=== PATIENT | female | born 1985 | race Caucasian/White ===

== ENCOUNTER 2017-01-21 11:54 | Emergency (ER) | payer MEDICARE, MEDICAID ==
[~2017-01-21] VITALS: Ht 162.6 cm; Wt 92.1 kg
[~2017-01-21 11:54] MED LIST: 8 HO650T PO; CIPR500T89 PO; FLAG500T PO; LORT5TAB PO; NUVAMIS2 VA; OMEP20CA3 PO
[2017-01-21] MEDS ORDERED: ZYPR10TA PO (12:04)
[2017-01-21] MEDS ORDERED: TRAZ150T14 PO (12:04)
[2017-01-21] MEDS ORDERED: ALBUTEROL SULFATE 2.5 MG/0.5 ML INH NEB SOLN NEB ONE (12:45)
[2017-01-21] MEDS ORDERED: ALBU17IN2 INH (13:15)
[2017-01-21] MEDS ORDERED: DOXY-278 PO (13:15)
[2017-01-21] MEDS ORDERED: MUCI600T34 PO (13:15)
[2017-01-21 13:31] VITALS: BP 136/84
--- NOTE | 2017-01-21 13:36 | REP ---
CHEST, TWO VIEWS: COMPARISON: 02/21/2014 There is no evidence of acute infiltrate. No pleural effusion is seen. The heart is normal in size. The mediastinal silhouette is unremarkable. The visualized osseous structures are intact. IMPRESSION: No acute pulmonary disease. Signed by Homeor Alcaraz MD 01/22/2017 01:17 P
== END 2017-01-21 13:33 | disposition home or self-care (01) ==
LOC: M ED 12:33
DX: J20.9 Acute bronchitis, unspecified (principal); F17.210 Nicotine dependence, cigarettes, uncomplicated; J45.909 Unspecified asthma, uncomplicated; Z88.0 Allergy status to penicillin; Z88.8 Allergy status to other drugs, medicaments and biological substances; Z79.899 Other long term (current) drug therapy; Z85.41 Personal history of malignant neoplasm of cervix uteri; F31.9 Bipolar disorder, unspecified; F43.10 Post-traumatic stress disorder, unspecified

== ENCOUNTER → 2017-02-08 | Outpatient (CLI) | payer MEDICAID, MEDICARE, OTHER ==
[~2017-02-08] MED LIST changes: +ALBU17IN2 INH; +CITRSOL8 PO; +COLA100C3 PO; +DOXY-278 PO; +METH10CO PO; +MUCI600T34 PO; +TRAZ150T14 PO; +ZYPR10TA PO
[2017-02-08 14:53] LABS: CONTROL LINE UCG INT CTR LINE PRESENT
[2017-02-08 14:54] LABS: BASO # 0.1 K/mm3 (0.0-0.2); BASO % 0.8 % (0.0-1.0); EOS # 0.2 K/mm3 (0.0-0.50); EOS % 2.1 % (0.0-3.0); LARGE UNSTAINED CELL # 0.1 K/mm3 (0.0-0.4); LARGE UNSTAINED CELL % 1.5 % (0.0-4.0); LYMPH # 2.8 K/mm3 (1.5-6.5); LYMPH % 29.9 % (24.0-44.0); MEAN CORPUSCULAR HEMOGLOBIN 31.8 pg (27.0-33.0); MEAN CORPUSCULAR HGB CONC 33.4 g/dl (32.0-36.5); MEAN CORPUSCULAR VOLUME 95.1 fl (80.0-96.0); MONO # 0.4 K/mm3 (0.0-0.8); MONO % 4.5 % (0.0-5.0); NEUTROPHILS # 5.4 K/mm3 (1.8-7.7); NEUTROPHILS % 61.2 % (36.0-66.0); PLATELET COUNT, AUTOMATED 332 k/mm3 (150-450); RED CELL DISTRIBUTION WIDTH 12.6 % (11.5-14.5); WHITE BLOOD COUNT 8.8 K/mm3 (4.0-10.0)
[2017-02-08 15:21] LABS: ALBUMIN 3.9 GM/DL (3.2-5.2); ALBUMIN/GLOBULIN RATIO 1.15 (1.00-1.93); ALKALINE PHOSPHATASE 75 U/L (45-117); ALT/SGPT 94 U/L (12-78); ANION GAP 10 MEQ/L (8-16); AST/SGOT 37 U/L (15-37); BILIRUBIN,TOTAL 0.4 MG/DL (0.2-1.0); BLOOD UREA NITROGEN 20 MG/DL (7-18); CALCIUM LEVEL 9.1 MG/DL (8.5-10.1); CARBON DIOXIDE LEVEL 23 MEQ/L (21-32); CHLORIDE LEVEL 105 MEQ/L (98-107); CREATININE FOR GFR 0.74 MG/DL (0.55-1.02); GLOMERULAR FILTRATION RATE > 60.0 (>60); GLUCOSE, FASTING 155 MG/DL (70-105); POTASSIUM SERUM 4.4 MEQ/L (3.5-5.1); SODIUM LEVEL 138 MEQ/L (136-145); TOTAL PROTEIN 7.3 GM/DL (6.4-8.2)
--- NOTE | 2017-02-08 17:59 | ECGEPIP ---
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
== END ==
LOC: M LAB 13:45
PROVIDERS: ATTEND Family Medicine
DX: F11.20 Opioid dependence, uncomplicated (principal)

== ENCOUNTER 2017-02-22 15:35 | Emergency (ER) | payer MEDICARE, MEDICAID ==
[~2017-02-22] VITALS: Ht 162.6 cm; Wt 97.5 kg
[~2017-02-22 15:35] MED LIST changes: -CITRSOL8 PO; -COLA100C3 PO; -METH10CO PO
[2017-02-22] MEDS ORDERED: METH10CO PO (15:49)
[2017-02-22 16:57] VITALS: BP 134/70
[2017-02-22] MEDS ORDERED: COLA100C3 PO (17:06)
[2017-02-22] MEDS ORDERED: CITRSOL8 PO (17:06)
--- NOTE | 2017-02-22 17:40 | REP ---
ABDOMEN FLAT UPRIGHT PA CHEST, FOUR VIEWS: HISTORY: Constipation. Air is present in the small and large intestine. There are no air fluid levels with dilated loops of intestine. There is no pneumoperitoneum. A mild amount of stool is present in the colon. The lungs are clear. IMPRESSION: 1. Nonspecific bowel gas pattern. 2. There is a mild amount of stool in the colon. Signed by Bhavik Ledesma MD 02/23/2017 09:06 A
== END 2017-02-22 17:25 | disposition home or self-care (01) ==
LOC: M ED 16:17
DX: K59.00 Constipation, unspecified (principal); J34.89 Other specified disorders of nose and nasal sinuses; Z86.19 Personal history of other infectious and parasitic diseases; F17.200 Nicotine dependence, unspecified, uncomplicated; J45.909 Unspecified asthma, uncomplicated; F41.9 Anxiety disorder, unspecified; F32.9 Major depressive disorder, single episode, unspecified; F43.10 Post-traumatic stress disorder, unspecified; Z87.09 Personal history of other diseases of the respiratory system; Z79.899 Other long term (current) drug therapy; Z88.0 Allergy status to penicillin; Z88.5 Allergy status to narcotic agent; Z88.1 Allergy status to other antibiotic agents

== ENCOUNTER → 2017-06-22 | Outpatient (CLI) | payer MEDICARE, MEDICAID ==
[~2017-06-22] MED LIST changes: -8 HO650T PO; +8 HO650T2 PO; +CIPR-249 PO; -CIPR500T89 PO; +CITRSOL8 PO; +COLA100C5 PO; +METH10CO PO; -MUCI600T34 PO; +MUCI600T37 PO; -TRAZ150T14 PO; +TRAZ1TAB14 PO
[2017-06-22 18:55] LABS: PROGESTERONE 0.8 NG/ML
[2017-06-22 18:56] LABS: ESTRADIOL 60.1 PG/ML
[2017-06-22 19:03] LABS: FREE T4 1.35 NG/DL (0.76-1.46)
[2017-06-27 14:08] LABS: 17 HYDROXY PROGESTERONE 39 ng/dL (.)
== END ==
LOC: M SMT 14:40
PROVIDERS: ATTEND Obstetrics & Gynecology
DX: N97.9 Female infertility, unspecified (principal)
CPT/HCPCS: 36415; 82627; 82670; 83498; 84144; 84146; 84402; 84403; 84439; 84443; G0123

== ENCOUNTER → 2017-07-20 | Outpatient (CLI) | payer MEDICAID ==
[2017-07-20 13:25] LABS: BASO # 0.1 K/mm3 (0.0-0.2); BASO % 0.8 % (0.0-1.0); EOS # 0.3 K/mm3 (0.0-0.50); EOS % 2.8 % (0.0-3.0); LARGE UNSTAINED CELL # 0.2 K/mm3 (0.0-0.4); LARGE UNSTAINED CELL % 2.1 % (0.0-4.0); LYMPH # 2.9 K/mm3 (1.5-4.5); LYMPH % 30.8 % (24.0-44.0); MEAN CORPUSCULAR HEMOGLOBIN 31.8 pg (27.0-33.0); MEAN CORPUSCULAR HGB CONC 34.3 g/dl (32.0-36.5); MEAN CORPUSCULAR VOLUME 92.7 fl (80.0-96.0); MONO # 0.6 K/mm3 (0.0-0.8); MONO % 6.5 % (0.0-5.0); NEUTROPHILS # 5.4 K/mm3 (1.8-7.7); NEUTROPHILS % 56.9 % (36.0-66.0); PLATELET COUNT, AUTOMATED 302 k/mm3 (150-450); RED CELL DISTRIBUTION WIDTH 12.8 % (11.5-14.5); WHITE BLOOD COUNT 9.5 K/mm3 (4.0-10.0)
[2017-07-20 13:29] LABS: ALBUMIN 3.7 GM/DL (3.2-5.2); ALBUMIN/GLOBULIN RATIO 1.06 (1.00-1.93); ALKALINE PHOSPHATASE 84 U/L (45-117); ALT/SGPT 182 U/L (12-78); ANION GAP 9 MEQ/L (8-16); AST/SGOT 88 U/L (15-37); BLOOD UREA NITROGEN 12 MG/DL (7-18); CALCIUM LEVEL 9.3 MG/DL (8.5-10.1); CARBON DIOXIDE LEVEL 25 MEQ/L (21-32); CHLORIDE LEVEL 106 MEQ/L (98-107); CHOLESTEROL LEVEL 132 MG/DL (<200); CREATININE FOR GFR 0.57 MG/DL (0.55-1.02); GLOMERULAR FILTRATION RATE > 60.0 (>60); GLUCOSE, FASTING 73 MG/DL (70-105); POTASSIUM SERUM 4.5 MEQ/L (3.5-5.1); SODIUM LEVEL 140 MEQ/L (136-145); TOTAL PROTEIN 7.2 GM/DL (6.4-8.2); TRIGLYCERIDES LEVEL 78 MG/DL (<150)
== END ==
LOC: M LAB 12:05
PROVIDERS: ATTEND Family Medicine Addiction Medicine
DX: Z00.01 Encounter for general adult medical examination with abnormal findings (principal); B18.2 Chronic viral hepatitis C

== ENCOUNTER → 2017-08-17 | Outpatient (REF) | payer MEDICAID ==
[2017-08-24 00:08] LABS: BENZODIAZEPINES, URINE SCREEN Negative ng/mL (Cutoff=200); METHADONE, URINE Positive (Cutoff=300); METHADONE, URINE SCREEN See Final Results ng/mL (Cutoff=300); pH, URINE 6.3 (4.5-8.9)
== END ==
LOC: M LAB REF 11:53
PROVIDERS: ATTEND Nurse Practitioner Adult Health
DX: Z51.81 Encounter for therapeutic drug level monitoring (principal); Z79.899 Other long term (current) drug therapy

== ENCOUNTER → 2017-08-24 | Outpatient (REF) ==
--- NOTE | 2017-08-24 12:22 | REP ---
Left ankle four views: Comparison is 2015. There is internal fixation of the distal fibula. The hardware and fracture are in satisfactory positions alignment. Mineralization is normal. The mortise is symmetric. There is no acute fracture. No calcifications or foreign bodies otherwise. No Signed by Homero Spear MD 08/24/2017 12:13 P
--- NOTE | 2017-08-24 12:52 | REP ---
Lumbar spine three views: Vertebral body heights, interspacing alignment are normal. The pedicles, facets and sacroiliac articulations are unremarkable. There is no spondylolysis or spondylolisthesis. There are surgical clips in the abdominal right upper quadrant. There is a calcification inferiorly in the pelvis on the left. Impression: Negative lumbar spine. Signed by Homero Spear MD 08/24/2017 12:44 P
== END ==
LOC: M SMT 11:07
PROVIDERS: ATTEND Internal Medicine
DX: M54.5 Low back pain (principal)

== ENCOUNTER → 2017-09-16 | Outpatient (CLI) | payer OTHER | LOC: M OUTALCOH 07:31 | PROVIDERS: ATTEND Psychiatry & Neurology Psychiatry | DX: F11.20 Opioid dependence, uncomplicated (principal) ==

== ENCOUNTER 2017-09-27 15:37 | Emergency (ER) | payer OTHER ==
[~2017-09-27] VITALS: Ht 162.6 cm; Wt 100.0 kg
[2017-09-27] MEDS ORDERED: PRAZ1CAP PO (15:45)
[2017-09-27] MEDS ORDERED: METF10004 PO (15:45)
[2017-09-27] MEDS ORDERED: LATU20TA PO (15:45)
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
[2017-09-27 17:44] VITALS: BP 140/75
== END 2017-09-27 17:46 | disposition home or self-care (01) ==
LOC: M ED 15:37
DX: S93.402A Sprain of unspecified ligament of left ankle, initial encounter (principal); X50.1XXA Overexertion from prolonged static or awkward postures, initial encounter; Y92.410 Unspecified street and highway as the place of occurrence of the external cause; Y93.9 Activity, unspecified; Y99.9 Unspecified external cause status; J45.909 Unspecified asthma, uncomplicated; F31.9 Bipolar disorder, unspecified; F17.200 Nicotine dependence, unspecified, uncomplicated; Z79.84 Long term (current) use of oral hypoglycemic drugs; Z79.899 Other long term (current) drug therapy; Z88.0 Allergy status to penicillin; Z88.5 Allergy status to narcotic agent; Z88.8 Allergy status to other drugs, medicaments and biological substances; Z88.1 Allergy status to other antibiotic agents

== ENCOUNTER 2017-10-05 16:00 | Outpatient (RCR) | payer OTHER | END 2017-10-31 | LOC: M OUTALCOH 10-12 09:00 | DX: F11.20 Opioid dependence, uncomplicated (principal); F17.200 Nicotine dependence, unspecified, uncomplicated ==

== ENCOUNTER 2017-11-03 14:24 | Outpatient (RCR) | payer OTHER | END 2017-12-01 | LOC: M OUTALCOH 11-04 11:00 | DX: F11.20 Opioid dependence, uncomplicated (principal); F17.200 Nicotine dependence, unspecified, uncomplicated ==

== ENCOUNTER 2017-11-18 11:07 | Emergency (ER) | payer OTHER | END 2017-11-18 11:43 | disposition home or self-care (01) | LOC: M ED 11:07 | DX: L02.31 Cutaneous abscess of buttock (principal); L03.317 Cellulitis of buttock; J06.9 Acute upper respiratory infection, unspecified; R73.09 Other abnormal glucose; Z88.0 Allergy status to penicillin; Z88.5 Allergy status to narcotic agent; Z88.1 Allergy status to other antibiotic agents; Z88.8 Allergy status to other drugs, medicaments and biological substances | CPT/HCPCS: 99283 ==

== ENCOUNTER → 2018-01-18 | Outpatient (REF) | payer OTHER | LOC: M LAB REF 16:39 | DX: F11.21 Opioid dependence, in remission (principal) ==

== ENCOUNTER → 2018-01-25 | Outpatient (CLI) | payer OTHER | LOC: M OUTALCOH 07:44 | DX: F11.20 Opioid dependence, uncomplicated (principal) ==

== ENCOUNTER → 2018-01-26 | Outpatient (REF) | payer OTHER, MEDICAID ==
[2018-02-05 00:08] LABS: AMPHETAMINE SCREEN, URINE Negative ng/mL (Cutoff=1000); BARBITURATES SCREEN, URINE Negative ng/mL (Cutoff=200); BENZODIAZEPINES, URINE SCREEN Negative ng/mL (Cutoff=200); CANNABINOID SCREEN, URINE Negative ng/mL (Cutoff=20); COCAINE SCREEN, URINE Negative ng/mL (Cutoff=300); CODEINE, URINE Negative (Cutoff=100); CREATININE, URINE 161.7 mg/dL (20.0-300.0); FENTANYL URINE Positive (.); FENTANYL URINE CONFIRM 12360 pg/mL (Cutoff=500); FENTANYL URINE SCREEN See Final Results pg/mL (Cutoff=2000); FENTANYL/NORFENTANYL Positive (Cutoff=2000); HYDROCODONE, URINE Negative (Cutoff=100); HYDROMORPHONE, URINE Negative (Cutoff=100); METHADONE, URINE SCREEN Negative ng/mL (Cutoff=300); MORPHINE CONFIRM, URINE 2170 ng/mL (Cutoff=100); MORPHINE, URINE Positive (.); NALOXONE RESULT Negative (.); NORFENTANYL URINE Positive (.); NORFENTANYL URINE CONFIRM >90000 pg/mL (Cutoff=500); OPIATE SCREEN, URINE See Final Results ng/mL (Cutoff=300); OPIATES, URINE Positive ng/mL (Cutoff=300); OXYCODONE, SCREEN, URINE Negative ng/mL (Cutoff=100); PCP SCREEN, URINE Negative ng/mL (Cutoff=25); SPECIFIC GRAVITY, URINE 1.025 (.); URINE BUPRENORPHINE Negative ng/mL (Cutoff=10); pH, URINE 5.9 (4.5-8.9)
== END ==
LOC: M LAB REF 16:55
DX: F11.21 Opioid dependence, in remission (principal)
CPT/HCPCS: 80362

== ENCOUNTER 2018-02-03 15:03 | Outpatient (RCR) | payer OTHER | END 2018-02-28 | LOC: M OUTALCOH 02-18 11:00 | DX: F11.20 Opioid dependence, uncomplicated (principal); F17.200 Nicotine dependence, unspecified, uncomplicated ==

== ENCOUNTER 2018-02-10 13:42 | Emergency (ER) | payer OTHER ==
[2018-02-10] MEDS: KETOROLAC 60 MG/2 ML VIAL (J1885) IM (16:00)
[2018-02-10] MEDS: METHOCARBAMOL 750 MG TAB PO (16:00)
== END 2018-02-10 17:09 | disposition home or self-care (01) ==
LOC: M ED 13:42
DX: S16.1XXA Strain of muscle, fascia and tendon at neck level, initial encounter (principal); S23.3XXA Sprain of ligaments of thoracic spine, initial encounter; B85.2 Pediculosis, unspecified; W18.2XXA Fall in (into) shower or empty bathtub, initial encounter; Y92.099 Unspecified place in other non-institutional residence as the place of occurrence of the external cause; Y93.9 Activity, unspecified; E11.9 Type 2 diabetes mellitus without complications; I10 Essential (primary) hypertension; F31.9 Bipolar disorder, unspecified; F43.10 Post-traumatic stress disorder, unspecified; F41.9 Anxiety disorder, unspecified; F32.9 Major depressive disorder, single episode, unspecified; J45.909 Unspecified asthma, uncomplicated; E78.00 Pure hypercholesterolemia, unspecified; B19.20 Unspecified viral hepatitis C without hepatic coma; F17.200 Nicotine dependence, unspecified, uncomplicated; Z79.84 Long term (current) use of oral hypoglycemic drugs; Z79.899 Other long term (current) drug therapy; Z88.0 Allergy status to penicillin; Z88.5 Allergy status to narcotic agent; Z88.1 Allergy status to other antibiotic agents
CPT/HCPCS: J1885

== ENCOUNTER 2018-03-22 12:35 | Emergency (ER) | payer OTHER | END 2018-03-22 15:05 | disposition home or self-care (01) | LOC: M ED 12:35 | DX: L30.9 Dermatitis, unspecified (principal); H60.91 Unspecified otitis externa, right ear; I10 Essential (primary) hypertension; J45.909 Unspecified asthma, uncomplicated; B18.2 Chronic viral hepatitis C; F17.200 Nicotine dependence, unspecified, uncomplicated; F31.9 Bipolar disorder, unspecified; F43.10 Post-traumatic stress disorder, unspecified; F41.9 Anxiety disorder, unspecified; Z88.0 Allergy status to penicillin; Z88.8 Allergy status to other drugs, medicaments and biological substances; Z88.5 Allergy status to narcotic agent; Z98.890 Other specified postprocedural states | CPT/HCPCS: 99283 ==

== ENCOUNTER 2018-06-28 14:48 | Emergency (ER) | payer OTHER ==
[2018-06-28] MEDS: predniSONE 20 MG TAB PO (16:10)
[2018-06-28] MEDS: IBUPROFEN 800 MG TAB PO (16:10)
[2018-06-28] MEDS: IPRATROPIUM 0.5MG/ALBUTEROL 2.5MG INH SOL UD 3ML (DUONEB)(J7620) NEB (16:16)
[2018-06-28] MEDS: ALBUTEROL SULFATE 2.5 MG/0.5 ML INH NEB SOLN NEB (16:16)
[2018-06-28] MEDS: AZITHROMYCIN 250 MG TAB PO (16:45)
== END 2018-06-28 16:48 | disposition home or self-care (01) ==
LOC: M ED 14:48
DX: J45.901 Unspecified asthma with (acute) exacerbation (principal); J20.9 Acute bronchitis, unspecified; E11.9 Type 2 diabetes mellitus without complications; I10 Essential (primary) hypertension; F41.9 Anxiety disorder, unspecified; B19.20 Unspecified viral hepatitis C without hepatic coma; F17.210 Nicotine dependence, cigarettes, uncomplicated
CPT/HCPCS: 71046

== ENCOUNTER 2018-11-19 15:31 | Emergency (ER) | payer OTHER ==
[~2018-11-19] VITALS: Ht 162.6 cm; Wt 113.6 kg
[~2018-11-19 15:31] MED LIST changes: +CYCL10TA PO; -DOXY-278 PO; +DOXY-350 PO; +DOXY100C37 PO; +IBUP-1022 PO; +IBUP80TA PO; +LATU20TA PO; +METF10004 PO; +MOTR200T44 PO; +NAPR-885 PO; +NIX1KIT EXT; +POLY2.5S AD; +PRAZ1CAP PO; +PRED20TA PO; +TOPR25TA13 PO; +TYLE325T5 PO; +VENTAER INH; +ZITHTAB PO
[2018-11-19 15:32] VITALS: BP 148/77
[2018-11-19] MEDS ORDERED: METH10TA2 PO (15:39)
[2018-11-19] MEDS ORDERED: METOCLOPRAMIDE INJ 10MG/2ML VIAL (J2765) IV ONE (17:00)
[2018-11-19] MEDS ORDERED: NS 1,000 ML IV ONE (17:00)
[2018-11-19 18:25] LABS: HCG, SERUM QUALITATIVE NEGATIVE (NEGATIVE)
[2018-11-19] MEDS ORDERED: ACETAMINOPHEN 325 MG TAB PO ONE (18:30)
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
== END 2018-11-19 18:47 | disposition left against medical advice (07) ==
LOC: M ED 15:31
DX: R51 Headache (principal); S09.90XA Unspecified injury of head, initial encounter; H53.8 Other visual disturbances; Y04.8XXA Assault by other bodily force, initial encounter; Y92.89 Other specified places as the place of occurrence of the external cause; I10 Essential (primary) hypertension; J45.909 Unspecified asthma, uncomplicated; B19.20 Unspecified viral hepatitis C without hepatic coma; R73.03 Prediabetes; F41.9 Anxiety disorder, unspecified; F32.9 Major depressive disorder, single episode, unspecified; F43.10 Post-traumatic stress disorder, unspecified; F19.10 Other psychoactive substance abuse, uncomplicated; Z88.1 Allergy status to other antibiotic agents; Z88.8 Allergy status to other drugs, medicaments and biological substances; Z88.0 Allergy status to penicillin; Z91.018 Allergy to other foods; Z79.899 Other long term (current) drug therapy
CPT/HCPCS: 70450; 81025; 84703; 96374; 99284; J2765

== ENCOUNTER 2019-04-11 18:09 | Emergency (ER) | payer OTHER ==
[~2019-04-11] VITALS: Ht 162.6 cm; Wt 114.8 kg
[~2019-04-11 18:09] MED LIST changes: +METH10TA2 PO; +TOPR25TA PO; -TOPR25TA13 PO
[2019-04-11] MEDS ORDERED: NS 1,000 ML IV ONE (19:15)
[2019-04-11] MEDS ORDERED: diphenhydrAMINE INJ 50MG/ML VIAL (J1200) IV ONE (19:15)
[2019-04-11] MEDS ORDERED: diphenhydrAMINE 50 MG CAP PO ONE (20:15)
[2019-04-11 20:18] LABS: BLOOD UREA NITROGEN 15 MG/DL (7-18); CREATININE FOR GFR 0.76 MG/DL (0.55-1.30); GLUCOSE, FASTING 96 MG/DL (70-100)
[2019-04-11 20:19] LABS: ALBUMIN 3.4 GM/DL (3.2-5.2); ALT/SGPT 44 U/L (12-78); BASO # 0.1 10^3/uL (0.0-0.2); BASO % 0.9 % (0.0-1.0); BILIRUBIN,DIRECT 0.1 MG/DL (0.0-0.2); BILIRUBIN,TOTAL 0.5 MG/DL (0.2-1.0); C REACTIVE PROTEIN QUANTITATIV 1.99 MG/DL (0.00-0.30); CALCIUM LEVEL 9.1 MG/DL (8.5-10.1); CARBON DIOXIDE LEVEL 28 MEQ/L (21-32); CHLORIDE LEVEL 106 MEQ/L (98-107); EOS # 0.3 10^3/uL (0.0-0.50); EOS % 2.9 % (0.0-3.0); GLOMERULAR FILTRATION RATE > 60.0 (>60); HEMATOCRIT 35.9 % (36.0-47.0); HEMOGLOBIN 12.4 g/dl (12.0-15.5); LIPASE 66 U/L (73-393); LYMPH # 2.1 10^3/uL (1.5-4.5); LYMPH % 23.6 % (24.0-44.0); MEAN CORPUSCULAR HEMOGLOBIN 31.6 pg (27.0-33.0); MEAN CORPUSCULAR HGB CONC 34.5 g/dl (32.0-36.5); MEAN CORPUSCULAR VOLUME 91.3 fl (80.0-96.0); MONO # 0.7 10^3/uL (0.0-0.8); MONO % 8.2 % (0.0-5.0); NEUTROPHILS # 5.8 10^3/uL (1.8-7.7); PLATELET COUNT, AUTOMATED 330 10^3/uL (150-450); POTASSIUM SERUM 4.4 MEQ/L (3.5-5.1); RED BLOOD COUNT 3.93 10^6/uL (4.00-5.40); SODIUM LEVEL 139 MEQ/L (136-145); TOTAL PROTEIN 7.4 GM/DL (6.4-8.2); WHITE BLOOD COUNT 9.1 10^3/uL (4.0-10.0)
[2019-04-11 20:43] LABS: ERYTHROCYTE SEDIMENTATION RATE 14 mm/hr (0-20)
--- NOTE | 2019-04-11 21:09 | REPVR ---
EXAM: US Duplex Bilateral Lower Extremity Veins EXAM DATE/TIME: 04/11/2019 8:35 PM CLINICAL HISTORY: 33 years old, female; Signs and symptoms; Edema, localized; Lower extremity, bilateral; Additional info: B/l le swelling TECHNIQUE: Imaging protocol: Real-time duplex ultrasound of the Bilateral Lower Extremities with 2-D gomez scale, color Doppler flow and spectral waveform analysis. Complete exam focused on the bilateral lower extremity veins. COMPARISON: No relevant prior studies available. FINDINGS: Right deep veins: Unremarkable. The common femoral, femoral and popliteal veins are patent without thrombus. Normal Doppler waveforms. Normal compressibility and/or augmentation response. Right superficial veins: Saphenofemoral junction is patent without thrombus. Left deep veins: Unremarkable. The common femoral, femoral and popliteal veins are patent without thrombus. Normal Doppler waveforms. Normal compressibility and/or augmentation response. Left superficial veins: Saphenofemoral junction is patent without thrombus. Soft tissues: Unremarkable. IMPRESSION: No sonographic evidence of deep vein thrombosis. Electronically signed by: Jhonny Li On 04/11/2019 21:08:48 PM
[2019-04-11 21:37] VITALS: BP 146/74
[2019-04-11] MEDS ORDERED: BACT800T5 PO (21:41)
== END 2019-04-11 22:10 | disposition home or self-care (01) ==
LOC: M ED 18:09
DX: M79.661 Pain in right lower leg (principal); M79.662 Pain in left lower leg; L29.9 Pruritus, unspecified; L73.9 Follicular disorder, unspecified; D22.4 Melanocytic nevi of scalp and neck; B19.20 Unspecified viral hepatitis C without hepatic coma; I10 Essential (primary) hypertension; J45.909 Unspecified asthma, uncomplicated; F16.11 Hallucinogen abuse, in remission; F11.11 Opioid abuse, in remission; F17.210 Nicotine dependence, cigarettes, uncomplicated; Z88.0 Allergy status to penicillin; Z88.6 Allergy status to analgesic agent; Z88.8 Allergy status to other drugs, medicaments and biological substances; Z88.5 Allergy status to narcotic agent; Z88.1 Allergy status to other antibiotic agents; Z91.018 Allergy to other foods; Z79.899 Other long term (current) drug therapy

== ENCOUNTER 2019-04-24 00:59 | Emergency (ER) | payer OTHER ==
[~2019-04-24] VITALS: Ht 162.6 cm; Wt 113.6 kg
[~2019-04-24 00:59] MED LIST changes: +BACT800T5 PO
[2019-04-24] MEDS ORDERED: IBUP1TAB7 PO (01:04)
[2019-04-24] MEDS ORDERED: DIPH25TA4 PO (01:04)
[2019-04-24] MEDS ORDERED: diphenhydrAMINE INJ 50MG/ML VIAL (J1200) IV STA (01:36)
[2019-04-24] MEDS ORDERED: CIPROFLOXACIN 200 MG in APPROPRIATE DILUENT 1 EA IV ONE (01:45)
[2019-04-24] MEDS ORDERED: dexameTHASONE 20 MG/5 ML VIAL (J1100) IV ONE (01:45)
[2019-04-24 02:10] LABS: BASO # 0.1 10^3/uL (0.0-0.2); EOS # 0.3 10^3/uL (0.0-0.50); EOS % 3.2 % (0.0-3.0); HEMATOCRIT 38.3 % (36.0-47.0); LYMPH # 2.5 10^3/uL (1.5-4.5); LYMPH % 28.7 % (24.0-44.0); MEAN CORPUSCULAR HEMOGLOBIN 31.7 pg (27.0-33.0); MEAN CORPUSCULAR HGB CONC 33.9 g/dl (32.0-36.5); MEAN CORPUSCULAR VOLUME 93.4 fl (80.0-96.0); MONO # 0.6 10^3/uL (0.0-0.8); MONO % 6.4 % (0.0-5.0); NEUTROPHILS # 5.3 10^3/uL (1.8-7.7); PLATELET COUNT, AUTOMATED 287 10^3/uL (150-450); WHITE BLOOD COUNT 8.8 10^3/uL (4.0-10.0)
[2019-04-24 02:27] LABS: BLOOD UREA NITROGEN 15 MG/DL (7-18); CALCIUM LEVEL 9.3 MG/DL (8.5-10.1); CARBON DIOXIDE LEVEL 26 MEQ/L (21-32); CHLORIDE LEVEL 105 MEQ/L (98-107); CREATININE FOR GFR 0.74 MG/DL (0.55-1.30); GLOMERULAR FILTRATION RATE > 60.0 (>60); GLUCOSE, FASTING 108 MG/DL (70-100); POTASSIUM SERUM 5.1 MEQ/L (3.5-5.1); SODIUM LEVEL 137 MEQ/L (136-145)
[2019-04-24] MEDS ORDERED: dexameTHASONE 20 MG/5 ML VIAL (J1100) IM ONE (03:00)
[2019-04-24] MEDS ORDERED: diphenhydrAMINE INJ 50MG/ML VIAL (J1200) IM ONE (03:00)
[2019-04-24] MEDS ORDERED: CIPROFLOXACIN 250 MG TAB PO ONE (03:00)
[2019-04-24] MEDS ORDERED: METAL LOCK LOOP XX ONE (03:21)
[2019-04-24 05:27] VITALS: BP 108/66
== END 2019-04-24 05:32 | disposition home or self-care (01) ==
LOC: M ED 00:59
DX: R60.0 Localized edema (principal); F19.10 Other psychoactive substance abuse, uncomplicated; F31.9 Bipolar disorder, unspecified; F17.200 Nicotine dependence, unspecified, uncomplicated; Z88.0 Allergy status to penicillin; Z88.1 Allergy status to other antibiotic agents; Z88.5 Allergy status to narcotic agent; Z91.018 Allergy to other foods
CPT/HCPCS: 36415; 80048; 85025; 87040; 96372; 99284; J1100; J1200

== ENCOUNTER 2019-10-07 23:46 | Emergency (ER) | payer OTHER ==
[~2019-10-07] VITALS: Ht 162.6 cm; Wt 108.1 kg
[~2019-10-07 23:46] MED LIST changes: +DIPH25TA4 PO; +IBUP1TAB7 PO; +OMEP-172 PO; -OMEP20CA3 PO
[2019-10-08] MEDS ORDERED: KETOROLAC 30 MG/ML VIAL (J1885) IV ONE (01:30)
[2019-10-08] MEDS ORDERED: CLINDAMYCIN 900 MG in IV 1 EA IV ONE (01:30)
[2019-10-08 01:32] LABS: BASO # 0.1 10^3/uL (0.0-0.2); BASO % 0.5 % (0.0-1.0); EOS # 0.2 10^3/uL (0.0-0.5); EOS % 1.2 % (0.0-3.0); HEMOGLOBIN 13.7 g/dl (12.0-15.5); LYMPH # 2.7 10^3/uL (1.5-5.0); LYMPH % 20.7 % (24.0-44.0); MEAN CORPUSCULAR HEMOGLOBIN 29.8 pg (27.0-33.0); MEAN CORPUSCULAR HGB CONC 32.6 g/dl (32.0-36.5); MEAN CORPUSCULAR VOLUME 91.3 fl (80.0-96.0); MONO # 0.9 10^3/uL (0.0-0.8); MONO % 6.7 % (0.0-5.0); NEUTROPHILS # 9.1 10^3/uL (1.5-8.5); NEUTROPHILS % 70.4 % (36.0-66.0); PLATELET COUNT, AUTOMATED 367 10^3/uL (150-450)
[2019-10-08 01:59] LABS: BLOOD UREA NITROGEN 10 MG/DL (7-18); C REACTIVE PROTEIN QUANTITATIV 4.04 MG/DL (0.00-0.30); CALCIUM LEVEL 9.3 MG/DL (8.5-10.1); CARBON DIOXIDE LEVEL 28 MEQ/L (21-32); CHLORIDE LEVEL 105 MEQ/L (98-107); CREATININE FOR GFR 0.71 MG/DL (0.55-1.30); GLOMERULAR FILTRATION RATE > 60.0 (>60); GLUCOSE, FASTING 101 MG/DL (70-100); POTASSIUM SERUM 4.2 MEQ/L (3.5-5.1); SODIUM LEVEL 138 MEQ/L (136-145)
[2019-10-08 02:00] LABS: ERYTHROCYTE SEDIMENTATION RATE 41 mm/hr (0-20)
[2019-10-08] MEDS ORDERED: CLIN150C14 PO (02:04)
[2019-10-08 02:45] VITALS: BP 146/88
[2019-10-10] MEDS ORDERED: ACET-683 PO (01:16)
[2019-10-10] MEDS ORDERED: CLIN150C14 PO (04:01)
[2019-10-10] MEDS ORDERED: ACET-897 PO (04:01)
== END 2019-10-08 02:48 | disposition home or self-care (01) ==
LOC: M ED 23:46
DX: L03.113 Cellulitis of right upper limb (principal); I10 Essential (primary) hypertension; J45.909 Unspecified asthma, uncomplicated; F19.90 Other psychoactive substance use, unspecified, uncomplicated; F17.210 Nicotine dependence, cigarettes, uncomplicated; Z88.0 Allergy status to penicillin; Z88.1 Allergy status to other antibiotic agents; Z88.6 Allergy status to analgesic agent; Z91.018 Allergy to other foods
CPT/HCPCS: 80048; 85025; 85652; 86140; 87040; 96365; 96375; 99283; J1885

== ENCOUNTER 2020-04-06 06:53 | Emergency (ER) | payer OTHER ==
[~2020-04-06] VITALS: Ht 162.6 cm; Wt 114.7 kg
[~2020-04-06 06:53] MED LIST changes: +ACET-683 PO; +ACET-897 PO; +CLIN150C15 PO; +CYCL-707 PO; -CYCL10TA PO; -OMEP-172 PO; +OMEP1CAP73 PO
[2020-04-06] MEDS ORDERED: IBUP200C33 PO (07:00)
[2020-04-06] MEDS ORDERED: IBUPROFEN 800 MG TAB PO ONE (07:30)
[2020-04-06 08:42] LABS: BASO # 0.1 10^3/uL (0.0-0.2); BASO % 0.6 % (0.0-1.0); EOS # 0.2 10^3/uL (0.0-0.5); EOS % 1.5 % (0.0-3.0); LYMPH # 2.2 10^3/uL (1.5-5.0); LYMPH % 14.1 % (24.0-44.0); MEAN CORPUSCULAR HGB CONC 33.3 g/dl (32.0-36.5); MEAN CORPUSCULAR VOLUME 89.9 fl (80.0-96.0); MONO # 1.1 10^3/uL (0.0-0.8); MONO % 7.1 % (0.0-5.0); NEUTROPHILS # 11.9 10^3/uL (1.5-8.5); NEUTROPHILS % 76.2 % (36.0-66.0); PLATELET COUNT, AUTOMATED 338 10^3/uL (150-450); RED BLOOD COUNT 4.34 10^6/uL (4.00-5.40); WHITE BLOOD COUNT 15.6 10^3/uL (4.0-10.0)
[2020-04-06 09:02] LABS: ERYTHROCYTE SEDIMENTATION RATE 30 mm/hr (0-20)
--- NOTE | 2020-04-06 09:02 | REP ---
Clinical: Swelling Technique: AP, lateral, bilateral oblique views right hand . Findings: Soft-tissue swelling primarily overlying the the ulnar side of the wrist/hand adjacent to the fifth metacarpal bone. No subcutaneous emphysema or foreign body. The osseous structures appear intact without evidence for acute injury and no periosteal reaction is identified to suggest osteomyelitis by radiographic evaluation. Impression: Soft-tissue swelling. No subcutaneous emphysema or foreign body. Osseous structures appear intact and relatively unremarkable. Electronically Signed by Darin Conley MD 04/06/2020 08:53 A
[2020-04-06 09:10] LABS: BLOOD UREA NITROGEN 16 MG/DL (7-18); C REACTIVE PROTEIN QUANTITATIV 3.15 MG/DL (0.00-0.30); CALCIUM LEVEL 9.2 MG/DL (8.5-10.1); CARBON DIOXIDE LEVEL 26 MEQ/L (21-32); CHLORIDE LEVEL 108 MEQ/L (98-107); CREATININE FOR GFR 0.76 MG/DL (0.55-1.30); GLOMERULAR FILTRATION RATE > 60.0 (>60); GLUCOSE, FASTING 108 MG/DL (70-100); POTASSIUM SERUM 4.4 MEQ/L (3.5-5.1); SODIUM LEVEL 139 MEQ/L (136-145)
[2020-04-06 09:12] LABS: HCG, SERUM QUALITATIVE NEGATIVE (NEGATIVE)
[2020-04-06 09:45] VITALS: BP 157/91
[2020-04-06] MEDS ORDERED: IBUP80TA PO (09:45)
[2020-04-06] MEDS ORDERED: BACT800T5 PO (09:45)
--- NOTE | 2020-04-06 19:12 | ECGEPIP ---
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
[2020-04-07] MEDS ORDERED: DIFL150T PO (13:18)
[2020-04-07] MEDS ORDERED: HYDR25OIN TOP (13:18)
== END 2020-04-06 09:50 | disposition left against medical advice (07) ==
LOC: M ED 06:53
DX: L03.113 Cellulitis of right upper limb (principal); F19.10 Other psychoactive substance abuse, uncomplicated; Z53.21 Procedure and treatment not carried out due to patient leaving prior to being seen by health care provider; R94.31 Abnormal electrocardiogram [ECG] [EKG]; R00.0 Tachycardia, unspecified; F11.10 Opioid abuse, uncomplicated; E11.9 Type 2 diabetes mellitus without complications; I10 Essential (primary) hypertension; J45.909 Unspecified asthma, uncomplicated; F31.9 Bipolar disorder, unspecified; F43.10 Post-traumatic stress disorder, unspecified; Z86.19 Personal history of other infectious and parasitic diseases; F17.200 Nicotine dependence, unspecified, uncomplicated; F12.10 Cannabis abuse, uncomplicated; Z88.0 Allergy status to penicillin; Z88.8 Allergy status to other drugs, medicaments and biological substances; Z91.018 Allergy to other foods

== ENCOUNTER 2020-04-07 12:29 | Emergency (ER) | payer OTHER ==
[~2020-04-07] VITALS: Ht 162.6 cm; Wt 115.1 kg
[~2020-04-07 12:29] MED LIST changes: +IBUP200C33 PO
[2020-04-07 12:30] VITALS: BP 140/91
[2020-04-07] MEDS ORDERED: HYDR25OIN TOP (13:18)
[2020-04-07] MEDS ORDERED: DIFL150T PO (13:18)
== END 2020-04-07 13:23 | disposition home or self-care (01) ==
LOC: M ED 12:29 → EEVIPCON 12:29 → M ED 13:23
DX: L02.511 Cutaneous abscess of right hand (principal); L30.9 Dermatitis, unspecified

== ENCOUNTER 2020-04-10 21:02 | Inpatient (IN) | payer OTHER ==
[~2020-04-10] VITALS: Ht 162.6 cm; Wt 119.3 kg
[~2020-04-10 21:02] MED LIST changes: +CLIN150C14 PO; -CLIN150C15 PO; +DIFL150T PO; +HYDR25OIN TOP
[2020-04-10 23:21] LABS: BASO # 0.1 10^3/uL (0.0-0.2); BASO % 0.7 % (0.0-1.0); EOS # 0.2 10^3/uL (0.0-0.5); EOS % 1.9 % (0.0-3.0); HEMATOCRIT 37.5 % (36.0-47.0); HEMOGLOBIN 12.4 g/dl (12.0-15.5); LYMPH % 17.8 % (24.0-44.0); MEAN CORPUSCULAR HEMOGLOBIN 29.9 pg (27.0-33.0); MEAN CORPUSCULAR HGB CONC 33.1 g/dl (32.0-36.5); MEAN CORPUSCULAR VOLUME 90.4 fl (80.0-96.0); MONO # 0.6 10^3/uL (0.0-0.8); MONO % 5.4 % (0.0-5.0); NEUTROPHILS # 8.3 10^3/uL (1.5-8.5); NEUTROPHILS % 73.1 % (36.0-66.0); PLATELET COUNT, AUTOMATED 301 10^3/uL (150-450); RED BLOOD COUNT 4.15 10^6/uL (4.00-5.40); WHITE BLOOD COUNT 11.4 10^3/uL (4.0-10.0)
[2020-04-10 23:43] LABS: C REACTIVE PROTEIN QUANTITATIV 1.56 MG/DL (0.00-0.30); ERYTHROCYTE SEDIMENTATION RATE 54 mm/hr (0-20)
[2020-04-11] MEDS ORDERED: MORPHINE 10 MG/ML 1ML VIAL (J2270) IM ONE (00:45)
--- NOTE | 2020-04-11 01:21 | REP ---
Clinical: Abscess swelling. Technique: AP, lateral, bilateral oblique views of the right hand. Findings: Significant soft tissue swelling is appreciated. No subcutaneous emphysema. The osseous structures appear intact and normal. No obvious fracture, dislocation, or periosteal reaction is appreciated. Impression: Soft-tissue swelling. No obvious osseous involvement. Electronically Signed by Darin Conley MD 04/11/2020 01:13 A
[2020-04-11] MEDS ORDERED: LIDOCAINE 1% MDV 20ML VIAL As Ordered ONE (01:28)
[2020-04-11] MEDS ORDERED: VANCOMYCIN HCL 1,000 MG, VIAL MATE ADAPTER 1 EACH in D5W 250 ML IV SCH (02:15)
[2020-04-11] MEDS ORDERED: PERCOCET 5MG/325MG TAB PO PRN (02:15)
[2020-04-11] MEDS ORDERED: ACETAMINOPHEN TAB 650MG DOSE (2X325MG) PO PRN (02:15)
--- NOTE | 2020-04-11 02:17 | IPNPDOC ---
Date Seen The patient was seen on 04/11/20. Progress Note Central line placement note INDICATION: Poor IV access PROCEDURE CARPENTER MAINTENANCE: Dr. Alonso CONSENT: Consent was obtained from patient prior to the procedure. Indications, risks, and benefits were explained at length. PROCEDURE SUMMARY: A time out was performed. My hands were washed immediately prior to the procedure. I wore a surgical cap, mask with protective eyewear, full gown and s terile gloves throughout the procedure. The patient was placed in Trendelenburg position. Right chest region was prepped using chlorhexidine scrub and draped in sterile fashion using a full drape and sterile probe cover employed. The medial and lateral heads of the sternocleidomastoid muscle were identified as was the carotid pulse. The Internal Jugular vein was identified using the ultrasound. An esthesia was achieved over the vein using 1% lidocaine. Using real-time out of plane guidance, the introducer needle was inserted into the Internal Jugular vein under direct ultrasound visualization. Venous blood was withdrawn. The syringe was removed and a guidewire was advanced into the introducer needle. The guidewire was visualized in the Internal Jugular Vein by ultrasound. A small incision was made at the skin surface with a scalpel and the introducer needle was exchanged for a dilator over the guidewire. After appropriate dilation was obtained, the dilator was exchanged over the wire for a 20 cm central venous catheter. The wire was removed and the catheter was sutured in place at 15 cm. A sterile sorbaview shield was placed over the catheter at the insertion site. The patient tolerated the procedure without any hemodynamic compromise. At time of procedure completion, all ports aspirated and flushed properly. Post-procedure chest x-ray is pending at this time. Estimated blood loss is <5 ml. VS, I&O, 24H, [facility] Vital Signs/I&O Vital Signs Date Time Temp Pulse Resp B/P (MAP) Pulse Ox O2 Delivery O2 Flow Rate FiO2 04/11/20 01:52 98.8 97 19 138/89 (105) 97 Room Air Laboratory Data 24H LABS Laboratory Tests 2 04/10/20 22:54: Immature Granulocyte % (Auto) 1.1, Neutrophils (%) (Auto) 73.1H, Lymphocytes (%) (Auto) 17.8L, Monocytes (%) (Auto) 5.4H, Eosinophils (%) (Auto) 1.9, Basophils (%) (Auto) 0.7, Neutrophils # (Auto) 8.3, Lymphocytes # (Auto) 2.0, Monocytes # (Auto) 0.6, Eosinophils # (Auto) 0.2, Basophils # (Auto) 0.1, Nucleated Red Blood Cells % (auto) 0.0, Erythrocyte Sedimentation Rate 54H, C-Reactive Protein, Quantitative 1.56H CBC/BMP Laboratory Tests 04/10/20 22:54 CORRIE ALONSO MD Apr 11, 2020 02:17
--- NOTE | 2020-04-11 02:23 | HPEPDOC ---
[facility] Medical History & Physical Date of Admission Apr 11, 2020 Date of Service: Apr 11, 2020 Attending Physician: CORRIE ALONSO MD History and Physical CHIEF COMPLAINT: Right hand infection HISTORY OF PRESENT ILLNESS: 34-year-old female with past medical history of IV drug use, presents with worsening infection of right hand. Patient presented to the emergency department a few days ago for same infection, was discharged on Bactrim. She returned to the emergency department a day later, found to have an abscess, I&D was performed and she was sent home. She returns again today with worsening infection and drainage. She injected her and with Ashley and missed the vein. She denies any fever or other associated symptoms. She denies any numbness, tingling or weakness of the hand/arm. She denies shortness of breath, chest pain, nausea, vomiting, diarrhea or constipation. 10 point review of system is negative so for above PAST MEDICAL HISTORY: 1. IV drug use. PAST SURGICAL HISTORY: 1. Multiple orthopedic surgeries. 2. Cholecystectomy. SOCIAL HISTORY: Current smoker Denies alcohol use. Injected Ashley FAMILY HISTORY: Positive for heart disease ALLERGIES: Please see below. HOME MEDICATIONS: Please see below. PHYSICAL EXAMINATION: VITAL SIGNS: Please see below. GENERAL: No distress, morbidly obese HEENT: Normocephalic, atraumatic, moist mucous membranes NECK: Supple CARDIOVASCULAR EXAMINATION: S1, S2, no murmurs RESPIRATORY EXAMINATION: Diminished in the bases, no wheezing ABDOMINAL EXAMINATION: Soft, nontender, nondistended, positive bowel sounds EXTREMITIES: Range of motion intact SKIN: Right hand medial aspect with open wound, granulation tissue and pustular drainage along with surrounding erythema, edema and tenderness NEUROLOGICAL EXAMINATION: Alert and oriented 3, no focal deficits PSYCHIATRIC EXAMINATION: Calm and cooperative LABORATORY DATA: See below. IMAGING: Hand x-ray without subcutaneous edema or osseous involvement MICROBIOLOGY: Please see below. ASSESSMENT: 34-year-old female with past medical history of IV drug abuse, recently treated for abscess with I&D now presents with worsening infection of the hand. PLAN: 1. Cellulitis with abscess At the site of Ashley injection, recent I&D in the emergency department, continues to have significant infection with drainage and surrounding erythema, edema and tenderness, hand x-ray negative for deep tissue/bone involvement, vancomycin, cultures pending, pain control. 2. Lack of IV access. Right IJ triple-lumen catheter placed. Vital Signs Vital Signs Date Time Temp Pulse Resp B/P (MAP) Pulse Ox O2 Delivery O2 Flow Rate FiO2 04/11/20 01:52 98.8 97 19 138/89 (105) 97 Room Air Laboratory Data Labs 24H Laboratory Tests 2 04/10/20 22:54: Immature Granulocyte % (Auto) 1.1, Neutrophils (%) (Auto) 73.1H, Lymphocytes (%) (Auto) 17.8L, Monocytes (%) (Auto) 5.4H, Eosinophils (%) (Auto) 1.9, Basophils (%) (Auto) 0.7, Neutrophils # (Auto) 8.3, Lymphocytes # (Auto) 2.0, Monocytes # (Auto) 0.6, Eosinophils # (Auto) 0.2, Basophils # (Auto) 0.1, Nucleated Red Blood Cells % (auto) 0.0, Erythrocyte Sedimentation Rate 54H, C-Reactive Protein, Quantitative 1.56H CBC/BMP Laboratory Tests 04/10/20 22:54 Home Medications Scheduled Hydrocortisone (Hydrocortisone 2.5%) 20 Gm Oint...g., 1 APLCT TOP BID apply to affected area(s) Sulfamethoxazole/Trimethoprim (Bactrim Ds Tablet) 1 Each Tablet, 1 TAB PO Q12H Scheduled PRN Ibuprofen (Ibuprofen) 800 Mg Tablet, 800 MG PO Q6H PRN for PAIN Allergies Coded Allergies: cinnamon (Verified Allergy, Severe, ANAPHYLAXIS, 04/11/19) Penicillins (Verified Allergy, Intermediate, RASH, 04/11/19) propoxyphene (Verified Allergy, Intermediate, HIVES, 04/11/19) cefazolin (Verified Allergy, Unknown, 04/11/19) tramadol (Verified Allergy, Unknown, 04/11/19) A-FIB/CHADSVASC A-FIB History Current/History of A-Fib/PAF?: No CORRIE ALONSO MD Apr 11, 2020 02:23
[2020-04-11] MEDS: NS 1,000 ML IV SCH ×4 (02:26→17:14)
[2020-04-11] MEDS ORDERED: HYDR25OIN TOP (02:30)
[2020-04-11] MEDS ORDERED: BACT800T5 PO (02:30)
[2020-04-11] MEDS ORDERED: IBUP1TAB7 PO (02:30)
[2020-04-11] MEDS: PERCOCET 5MG/325MG TAB PO PRN ×2 (02:39→09:52)
[2020-04-11] MEDS ORDERED: VANCOMYCIN HCL 1,000 MG, VIAL MATE ADAPTER 1 EACH in D5W 250 ML IV ONE ×2 (02:45→04:00)
[2020-04-11 03:09] LABS: CREATININE FOR GFR 0.64 MG/DL (0.55-1.30); GLOMERULAR FILTRATION RATE > 60.0 (>60)
[2020-04-11 04:45] VITALS: BP 127/76
--- NOTE | 2020-04-11 05:28 | PHACANCOPD ---
PHARMACY VANCOMYCIN DOSING Pt Demographics Demographics Patient Age:34 , Weight:104.300 , Gender: female Events Past 24 Hours Events Past 24 Hours: NO: Dialysis, Diuretic Therapy, Change in CrCl, Fever, Elevation in WBC, Pending Diagnostics, Pending Procedures, Other Vancomycin Vancomycin indication: CELLULITIS Vancomycin Target Ranges: 15-20 mcg/ml Vancomycin Load Y/N: Yes Load Dose Date Time Vancomycin Load Dose: 2000MG Date: 04/11/20 Time: 0300 Vancomycin Dose Date: 04/11/20. Current Vancomycin Dose: 1250MG Q8H Intermittent Dosing?: No Labs Labs Laboratory Tests 04/10/20 22:54 Creatinine Clearance Date:04/11/20. Creatinine Clearance: CALCULATED 149 Assessment and Plan Maintaining Current Dose?: Yes Reason for dose change: No Dose Change Pharmacist Note Pharmacist Note Date: 04/11/20. Pharmacist note: Patient admitted for cellulitis and vancomycin consult placed with a trough goal of 15-20. No history of vancomycin usage here at [facility]. CrCl calculated to be 149.6. Scheduled loading dose of 2000mg IV vancomycin followed by maintenance dose of 1250mg q8h to begin at 0900. Trough scheduled for before the 4th dose at 0800 on 04/12/20. I will continue to follow this patient and adjust dosage as needed. RADHIKA JIMENEZ PHARMACY Apr 11, 2020 05:28
[2020-04-11] MEDS ORDERED: SODIUM CHLORIDE 0.9% INJ 10 ML SYR IV PRN (07:15)
--- NOTE | 2020-04-11 07:19 | REP ---
Clinical: Line placement . Comparison: 06/28/2018 . Findings: Right IJ line with tip in the SVC. No pneumothorax. The mediastinum and cardiac silhouette are stable and within normal limits for portable technique. The lung rivero are clear without acute consolidation, effusion, or pneumothorax. Skeletal structures are intact. Impression: No acute cardiopulmonary process appreciated. Right IJ line in satisfactory position. Electronically Signed by Darin Conley MD 04/11/2020 01:54 A
[2020-04-11 08:42] LABS: BASO # 0.1 10^3/uL (0.0-0.2); EOS # 0.2 10^3/uL (0.0-0.5); EOS % 3.3 % (0.0-3.0); HEMATOCRIT 37.7 % (36.0-47.0); HEMOGLOBIN 12.2 g/dl (12.0-15.5); LYMPH # 2.1 10^3/uL (1.5-5.0); LYMPH % 29.4 % (24.0-44.0); MEAN CORPUSCULAR HEMOGLOBIN 29.6 pg (27.0-33.0); MEAN CORPUSCULAR HGB CONC 32.4 g/dl (32.0-36.5); MEAN CORPUSCULAR VOLUME 91.5 fl (80.0-96.0); MONO # 0.5 10^3/uL (0.0-0.8); MONO % 7.2 % (0.0-5.0); NEUTROPHILS # 4.1 10^3/uL (1.5-8.5); NEUTROPHILS % 57.7 % (36.0-66.0); PLATELET COUNT, AUTOMATED 328 10^3/uL (150-450); RED BLOOD COUNT 4.12 10^6/uL (4.00-5.40)
[2020-04-11 09:10] LABS: BLOOD UREA NITROGEN 13 MG/DL (7-18); C REACTIVE PROTEIN QUANTITATIV 1.14 MG/DL (0.00-0.30); CALCIUM LEVEL 8.8 MG/DL (8.5-10.1); CARBON DIOXIDE LEVEL 29 MEQ/L (21-32); CHLORIDE LEVEL 107 MEQ/L (98-107); CREATININE FOR GFR 0.71 MG/DL (0.55-1.30); GLOMERULAR FILTRATION RATE > 60.0 (>60); GLUCOSE, FASTING 117 MG/DL (70-100); POTASSIUM SERUM 3.9 MEQ/L (3.5-5.1); SODIUM LEVEL 140 MEQ/L (136-145)
[2020-04-11 09:31] LABS: ERYTHROCYTE SEDIMENTATION RATE 41 mm/hr (0-20)
[2020-04-11] MEDS: VANCOMYCIN HCL 750 MG, VIAL MATE ADAPTER 1 EACH in D5W 250 ML IV SCH ×2 (09:45→17:15)
[2020-04-11] MEDS: VANCOMYCIN HCL 500 MG in D5W MINI-BAG PLUS 100 ML IV SCH ×2 (11:12→20:15)
[2020-04-11 14:00] VITALS: BP 118/66
[2020-04-11] MEDS: SODIUM CHLORIDE 0.9% INJ 10 ML SYR IV SCH ×2 (15:10→23:57)
[2020-04-11] MEDS ORDERED: oxyCODONE 5MG TAB PO PRN (15:45)
[2020-04-11] MEDS: ACETAMINOPHEN 500 MG TAB PO SCH ×2 (17:14→20:15)
[2020-04-11] MEDS: KETOROLAC 30 MG/ML 1ML VIAL IV SCH ×2 (17:14→23:55)
--- NOTE | 2020-04-11 19:01 | CR ---
DATE OF CONSULTATION: 04/11/[address] Valdez. HISTORY OF PRESENT ILLNESS: Rena is a 34-year-old female with right hand pain, swelling and worsening infection. She presented to the emergency department just 4 days ago with complaint of pain and infection. She was found to have an abscess. Apparently an incision and drainage (I and D) was performed, although I have no record of it, and she was sent home on antibiotics. The patient states she was injecting brando and missed her vein preceding this whole set of events. She has a history of intravenous (IV) drug use and prior cellulitis. Dr. Austin consulted the patient on April 11, 2020 and subsequently admitted her. She was put on IV vancomycin per positive methicillin-resistant Staphylococcus aureus (MRSA) about this wound. The patient reports to be doing better since receiving IV antibiotics. States that she can move her fingers better. PAST MEDICAL HISTORY: Includes IV drug use and subsequent hand cellulitis. PAST SURGICAL HISTORY: Includes ankle fracture, open reduction internal fixation. In fact, she mentions multiple orthopedic interventions. Cholecystectomy. SOCIAL HISTORY: She is a current smoker, IV drug user and consumes alcohol. FAMILY HISTORY: Positive for heart disease. ALLERGIES: CINNAMON - anaphylaxis. PENICILLIN - intermediate rash. PROPOXYPHENE - immediate hives. CEPHAZOLIN - allergy unknown. TRAMADOL - allergy unknown. Currently, she is on IV vancomycin. Scheduled Medicines include: Ibuprofen 800 mg by mouth every 6 hours as needed for pain, hydrocortisone 2.5% 20 grams, one application topically (aplct top) twice a day, Bactrim DS tablet one tablet by mouth every 12 hours LABORATORY AND MICROBIOLOGY; Results were reviewed. I defer to Dr. Austin's last note. Note: Her white count was elevated at 11.4 Vital signs were last reviewed 04/11/2020. Temperature 98.8, pulse 97, respiration 19, blood pressure 138/89, pulse oximetry 97%. X-ray showed subcutaneous edema, effusion about the hand. PHYSICAL EXAMINATION: This is an obese 34-year-old female in no acute distress. She is alert and oriented times three. Mood and affect are appropriate. (dictation cut off) in her hospital bed. Normocephalic. She can sit up on her own. She has no hard neurologic evidence in her upper or lower extremities. Chest rises symmetrically. Lungs are clear. All four extremities are neurovascularly intact. Her right hand has abundant dressings which were taken down. She has a gross defect about the right ulnar wrist and hand. This is a cellulitic area with no abscess but rather just a defect. There is no active drainage but collection resolving cellulitis. She was able to move her wrist with discomfort, radial pulse 2+, brisk capillary refill. Flexion/extension to the phalanges is without malrotation, angulation, limitation, or gross pain. Both her wrist and elbow are not grossly tender. Her forearm is supple. Compartments of the upper extremity are soft, nontender. No further imaging was ordered. Dr. Valdez ordered a stat right hand MRI, which is waiting to be completed. IMPRESSION: 34-year-old female, right ulnar-sided wrist/hand cellulitis and defect after attempting to inject brando. Overlapped with a history of IV drug abuse and cellulitis. Regular dressing change, continued antibiotics. I discussed the case with Dr. Cal Rodrigues, and he felt that the patient will be requiring some sort of skin flap secondary to her defect. Dr. Rodrigues stated he would reach out to the hospitalist team and coordinate with plastic surgery. In the interim, will await MRI results. Thank you for allowing me to participate in Ms. Dutta's care. If there is any further orthopedic considerations, I encourage our contact.
--- NOTE | 2020-04-11 19:14 | REPVR ---
PROCEDURE INFORMATION: Exam: MR Right Upper Extremity Other Than Joint Without Contrast; Hand Exam date and time: 04/11/2020 6:57 PM Age: 34 years old Clinical indication: Patient HX: PT states abscess on back of the RT hand on the lateral aspect by base of 5th metacarpal, from iv drug use >3days; Additional info: Right hand abscess TECHNIQUE: Imaging protocol: MR of the Right upper extremity without contrast. Exam focused on the hand. 3D rendering: MIP and/or 3D reconstructed images were created by the technologist. COMPARISON: CR Hand, complete 04/10/2020 11:16 PM FINDINGS: The examination is somewhat limited due to the lack of intravenous contrast. There is moderate soft tissue swelling along the ulnar aspect of the 5th metacarpal, as well as the dorsum of the hand. There is a soft tissue defect along the ulnar aspect of the 5th carpometacarpal joint with a small amount of subjacent phlegmonous change. No convincing organized fluid collection is identified. There is no soft tissue mass. No acute tendon or ligament injury is identified. There is no MR evidence of acute fracture or dislocation. Alignment is anatomic. Bone marrow signal is normal. The joint spaces are preserved. There are no erosive or destructive changes. No lytic or blastic lesion is seen. There is no significant effusion. IMPRESSION: 1. Limited noncontrast examination. 2. Cellulitis with a soft tissue defect and subjacent phlegmonous change along the ulnar aspect of the wrist, as described above. No convincing organized fluid collection to suggest abscess. No MR evidence of acute osteomyelitis. Electronically signed by: Jhonny Li On 04/11/2020 19:14:23 PM
[2020-04-11 22:00] VITALS: BP 147/79
[2020-04-12] MEDS: VANCOMYCIN HCL 750 MG, VIAL MATE ADAPTER 1 EACH in D5W 250 ML IV SCH ×2 (01:27→09:34)
[2020-04-12] MEDS: VANCOMYCIN HCL 500 MG in D5W MINI-BAG PLUS 100 ML IV SCH ×2 (02:29→11:16)
[2020-04-12] MEDS: KETOROLAC 30 MG/ML 1ML VIAL IV SCH ×2 (04:59→09:35)
[2020-04-12] MEDS: SODIUM CHLORIDE 0.9% INJ 10 ML SYR IV SCH (05:00)
[2020-04-12 06:00] VITALS: BP 138/64
[2020-04-12 08:51] LABS: BASO # 0.1 10^3/uL (0.0-0.2); BASO % 0.8 % (0.0-1.0); EOS # 0.2 10^3/uL (0.0-0.5); EOS % 3.4 % (0.0-3.0); HEMATOCRIT 36.9 % (36.0-47.0); HEMOGLOBIN 12.3 g/dl (12.0-15.5); LYMPH # 1.7 10^3/uL (1.5-5.0); MEAN CORPUSCULAR HGB CONC 33.3 g/dl (32.0-36.5); MONO # 0.5 10^3/uL (0.0-0.8); MONO % 7.4 % (0.0-5.0); NEUTROPHILS # 4.6 10^3/uL (1.5-8.5); NEUTROPHILS % 63.7 % (36.0-66.0); PLATELET COUNT, AUTOMATED 304 10^3/uL (150-450); WHITE BLOOD COUNT 7.2 10^3/uL (4.0-10.0)
[2020-04-12] MEDS ORDERED: NICOTINE 21MG/24HR 1 EA TRANSDERMAL TD SCH (09:00)
[2020-04-12 09:11] LABS: BLOOD UREA NITROGEN 11 MG/DL (7-18); CALCIUM LEVEL 8.1 MG/DL (8.5-10.1); CARBON DIOXIDE LEVEL 29 MEQ/L (21-32); CHLORIDE LEVEL 109 MEQ/L (98-107); GLOMERULAR FILTRATION RATE > 60.0 (>60); GLUCOSE, FASTING 89 MG/DL (70-100); POTASSIUM SERUM 3.8 MEQ/L (3.5-5.1); SODIUM LEVEL 141 MEQ/L (136-145)
[2020-04-12] MEDS: ACETAMINOPHEN 500 MG TAB PO SCH (09:35)
[2020-04-12] MEDS: NS 1,000 ML IV SCH (11:48)
[2020-04-12] MEDS ORDERED: DOXY-350 PO (14:15)
[2020-04-12] MEDS ORDERED: NICOTINE POLACRILEX 2 MG GUM PO PRN (15:00)
[2020-04-12] MEDS ORDERED: NICOTINE POLACRILEX 2 MG GUM PO ONE (15:00)
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
== END 2020-04-12 15:05 | disposition left against medical advice (07) | DRG 383 ==
LOC: M ED 21:02 → M ED INP 04-11 02:10 → ENRESERV 04-11 03:40 → M MSPAV 04-11 04:42
PROVIDERS: ADMIT Internal Medicine; ATTEND General Practice
PROC: 02HV33Z Insertion of Infusion Device into Superior Vena Cava, Percutaneous Approach (ICD-10-PCS; principal; 2020-04-11)
DX: L03.113 Cellulitis of right upper limb (principal); Z68.42 Body mass index [BMI] 45.0-49.9, adult; E66.01 Morbid (severe) obesity due to excess calories; F17.200 Nicotine dependence, unspecified, uncomplicated; L02.511 Cutaneous abscess of right hand; F15.188 Other stimulant abuse with other stimulant-induced disorder; Z79.899 Other long term (current) drug therapy; Z88.0 Allergy status to penicillin; Z88.1 Allergy status to other antibiotic agents; Z88.5 Allergy status to narcotic agent; Z91.018 Allergy to other foods; Z88.8 Allergy status to other drugs, medicaments and biological substances; B95.62 Methicillin resistant Staphylococcus aureus infection as the cause of diseases classified elsewhere

== ENCOUNTER 2020-07-14 14:33 | Emergency (ER) | payer OTHER ==
[2020-07-14] MEDS ORDERED: diphenhydrAMINE 50MG/ML VIAL (J1200) IV ONE (15:15)
[2020-07-14] MEDS ORDERED: NS 1,000 ML IV ONE (15:15)
[2020-07-14] MEDS ORDERED: KETOROLAC 30 MG/ML 1ML VIAL IV ONE (15:15)
[2020-07-14] MEDS ORDERED: METOCLOPRAMIDE INJ 10MG/2ML VIAL (J2765 PER 1) IV ONE (15:15)
[2020-07-14] MEDS ORDERED: REGL10TA6 PO (16:33)
[2020-07-14 16:48] VITALS: BP 109/55
== END 2020-07-14 17:00 | disposition home or self-care (01) ==
LOC: M ED 14:33 → EDBD 14:33 → M ED 17:00
DX: G43.909 Migraine, unspecified, not intractable, without status migrainosus (principal); I10 Essential (primary) hypertension; B18.2 Chronic viral hepatitis C; F19.10 Other psychoactive substance abuse, uncomplicated; F31.9 Bipolar disorder, unspecified; F43.10 Post-traumatic stress disorder, unspecified; F17.200 Nicotine dependence, unspecified, uncomplicated; Z88.0 Allergy status to penicillin; Z88.8 Allergy status to other drugs, medicaments and biological substances; Z88.6 Allergy status to analgesic agent
CPT/HCPCS: 96361; 96374; 96375; 99284; J1200; J1885; J2765

== ENCOUNTER 2021-01-08 13:48 | Emergency (ER) | payer OTHER ==
[~2021-01-08] VITALS: Ht 162.6 cm; Wt 124.3 kg
[~2021-01-08 13:48] MED LIST changes: -CLIN150C14 PO; +CLIN150C15 PO; +REGL10TA6 PO
[2021-01-08] MEDS ORDERED: GENTAMICIN SULF 80MG/2ML VIAL IM ONE (17:00)
[2021-01-08] MEDS ORDERED: AZITHROMYCIN 250MG TABLET PO ONE (17:00)
[2021-01-08] MEDS ORDERED: DOXYCYCLINE HYCLATE 100MG TABLET PO ONE (17:00)
[2021-01-08] MEDS ORDERED: metroNIDAZOLE (FLAGYL) 500MG TABLET PO ONE (17:10)
[2021-01-08] MEDS ORDERED: ONDANSETRON 4 MG ORAL DISINTEGRATING TAB PO ONE (17:10)
[2021-01-08 17:32] LABS: CHLAMYDIA DNA AMPLIFICATION NEGATIVE (NEGATIVE); GC DNA AMPLIFICATION NEGATIVE (NEGATIVE)
[2021-01-08 17:37] VITALS: BP 186/97
== END 2021-01-08 17:41 | disposition home or self-care (01) ==
LOC: M ED 13:48
DX: A59.01 Trichomonal vulvovaginitis (principal); K21.9 Gastro-esophageal reflux disease without esophagitis; B18.2 Chronic viral hepatitis C; F16.10 Hallucinogen abuse, uncomplicated; F31.9 Bipolar disorder, unspecified; E11.9 Type 2 diabetes mellitus without complications; I10 Essential (primary) hypertension; F43.10 Post-traumatic stress disorder, unspecified; Z88.0 Allergy status to penicillin; Z88.6 Allergy status to analgesic agent; Z88.8 Allergy status to other drugs, medicaments and biological substances
CPT/HCPCS: 81001; 87086; 87210; 87661; 96372; 99284; Q0162

== ENCOUNTER 2021-01-29 02:41 | Emergency (ER) | payer OTHER ==
[~2021-01-29] VITALS: Ht 162.6 cm; Wt 130.2 kg
[2021-01-29] MEDS ORDERED: DOXYCYCLINE HYCLATE 100MG TABLET PO ONE (03:40)
[2021-01-29] MEDS ORDERED: ONDANSETRON 4 MG ORAL DISINTEGRATING TAB PO ONE (03:40)
[2021-01-29] MEDS ORDERED: AZITHROMYCIN 250MG TABLET PO ONE (03:40)
[2021-01-29] MEDS ORDERED: metroNIDAZOLE (FLAGYL) 500MG TABLET PO ONE (03:40)
[2021-01-29] MEDS ORDERED: GENTAMICIN SULF 80MG/2ML VIAL IM ONE (03:40)
[2021-01-29 04:43] LABS: HCG, SERUM QUALITATIVE POSITIVE (NEGATIVE)
[2021-01-29 04:47] LABS: BLOOD UREA NITROGEN 25 MG/DL (7-18); C REACTIVE PROTEIN QUANTITATIV 0.66 MG/DL (0.00-0.30); CALCIUM LEVEL 9.8 MG/DL (8.5-10.1); CARBON DIOXIDE LEVEL 23 MEQ/L (21-32); CHLORIDE LEVEL 110 MEQ/L (98-107); CREATININE FOR GFR 1.08 MG/DL (0.55-1.30); GLOMERULAR FILTRATION RATE > 60.0 (>60); GLUCOSE, FASTING 162 MG/DL (70-100); POTASSIUM SERUM 4.4 MEQ/L (3.5-5.1); SODIUM LEVEL 139 MEQ/L (136-145)
[2021-01-29] MEDS ORDERED: MAALOX 30 ML SUSP *UDC PO ONE (04:50)
--- NOTE | 2021-01-29 04:50 | REPVR ---
PROCEDURE INFORMATION: Exam: US Duplex Right Lower Extremity Veins, Limited Exam date and time: 01/29/2021 4:13 AM Age: 35 years old Clinical indication: Pain; Swelling (edema) of limb; Lower extremity, right; Leg, lower; Additional info: Pain/swelling TECHNIQUE: Imaging protocol: Real-time Duplex ultrasound of the Right Lower Extremity with 2-D gomez scale, color Doppler flow and spectral waveform analysis with image documentation. Limited exam was focused on the right lower extremity veins. COMPARISON: US Duplex, Ext LOWER veins, bilat 04/11/2019 8:13 PM FINDINGS: Right deep veins: Unremarkable. The common femoral, femoral, proximal profunda femoral and popliteal veins are patent without thrombus. Normal Doppler waveforms. Normal compressibility and/or augmentation response. Right superficial veins: Unremarkable. Saphenofemoral junction is patent without thrombus. Soft tissues: Unremarkable. IMPRESSION: Negative right lower extremity venous duplex exam without evidence of deep venous thrombosis. Electronically signed by: Ryan Plummer On 01/29/2021 04:50:57 AM
[2021-01-29 05:01] LABS: CHLAMYDIA DNA AMPLIFICATION NEGATIVE (NEGATIVE); GC DNA AMPLIFICATION NEGATIVE (NEGATIVE)
[2021-01-29 05:03] LABS: HEMATOCRIT 38.4 % (36.0-47.0); HEMOGLOBIN 13.1 g/dl (12.0-15.5); MEAN CORPUSCULAR HEMOGLOBIN 30.4 pg (27.0-33.0); MEAN CORPUSCULAR HGB CONC 34.1 g/dl (32.0-36.5); MEAN CORPUSCULAR VOLUME 89.1 fl (80.0-96.0); PLATELET COUNT, AUTOMATED 241 10^3/uL (150-450); RED BLOOD COUNT 4.31 10^6/uL (4.00-5.40); WHITE BLOOD COUNT 11.4 10^3/uL (4.0-10.0)
[2021-01-29 05:21] LABS: ERYTHROCYTE SEDIMENTATION RATE 51 mm/hr (0-20)
[2021-01-29 05:35] LABS: ALT/SGPT 20 U/L (12-78); BILIRUBIN,DIRECT 0.1 MG/DL (0.0-0.2); BILIRUBIN,TOTAL 0.3 MG/DL (0.2-1.0); HCG, SERUM QUANTITATIVE 42457 MIU/ML; TOTAL PROTEIN 5.6 GM/DL (6.4-8.2)
[2021-01-29 05:55] LABS: MAGNESIUM LEVEL 1.8 MG/DL (1.8-2.4); URIC ACID 8.3 MG/DL (2.6-6.0)
[2021-01-29 06:22] LABS: APPEARANCE, URINE HAZY (CLEAR); BACTERIA, URINE AUTO 1+ (NEGATIVE); BILIRUBIN, URINE AUTO NEGATIVE (NEGATIVE); BLOOD, URINE BLOOD 1+ (NEGATIVE); COLOR, URINE YELLOW (YELLOW); GLUCOSE, URINE (UA) AUTO NEGATIVE (NEGATIVE); KETONE, URINE AUTO NEGATIVE (NEGATIVE); LEUKOCYTE ESTERASE, URINE AUTO TRACE (NEGATIVE); MUCUS, URINE SMALL (NEGATIVE); NITRITE, URINE AUTO NEGATIVE (NEGATIVE); PROTEIN, URINE AUTO 3+ mg/dL (NEGATIVE); RBC, URINE AUTO 42 /HPF (0-3); SPECIFIC GRAVITY URINE AUTO 1.026 (1.002-1.035); SQUAMOUS EPITHELIAL CELL UR AU 1 /HPF (0-6); UROBILINOGEN, URINE AUTO 0.2 mg/dL (0.0-2.0); WBC, URINE AUTO 7 /HPF (0-3)
[2021-01-29 06:27] LABS: PARTIAL THROMBOPLASTIN TIME 22.3 SECONDS (24.2-38.5)
[2021-01-29 06:30] LABS: INR 0.97; PROTHROMBIN TIME 13.1 SECONDS (12.5-14.3)
[2021-01-29] MEDS ORDERED: BETAMETHASONE SOLUSPAN 6MG/ML 5ML VIAL (J0702 PER 3MG) IM ONE (07:00)
--- NOTE | 2021-01-29 07:05 | REPVR ---
PROCEDURE INFORMATION: Exam: US , Limited Exam date and time: 01/29/2021 5:50 AM Age: 35 years old Clinical indication: Pain and screening exam; Other: Didn't know ; complicated by abdominal or pelvic pain; Generalized abdominal pain; Third trimester; Gestational age or lmp: Unknown; Additional info: Unexpected TECHNIQUE: Imaging protocol: Real-time ultrasound of the maternal uterus with image documentation. Exam focused on the clinical indication. COMPARISON: No relevant prior studies available. FINDINGS: Limitations: Maternal body habitus and position. Gestation: Single living intrauterine . position: Cephalic position. heart rate: heart rate 136 bpm. Placenta: Posterior placenta, grade 1. Amniotic fluid: Normal amniotic fluid. FLORESITA 9.7 cm. BIOMETRY: Gestational age (AUA): Ultrasound composite gestational age 31 weeks 4 days. Anatomy: Limited evaluation of the intracranial contents due to late gestational age, however, no abnormalities are identified. stomach, kidneys, bladder, spine and three-vessel cord are grossly unremarkable. Umbilical cord adjacent to the neck. Nuchal cord cannot be excluded. Estimated due date (AUA): JD 03/29/2021. Estimated weight: Estimated weight 1863 g (4 lb 2 oz). Biparietal diameter: BPD 7.6 cm, 30 weeks 3 days. Head circumference: Head circumference 28.4 cm, 31 weeks 2 days. Abdominal circumference: Abdominal circumference 28 cm, 32 weeks 1 day. Femur length: Femur length 6.3 cm, 32 weeks 4 days. biometric ratios: Normal cord Doppler with an S/D ratio 2.8 and RI 0.64. MATERNAL: Cervix: Cervix is closed measuring 4.4 cm in length. IMPRESSION: 1. Single living intrauterine in cephalic position with an ultrasound composite gestational age of 31 weeks 4 days. 2. JD 03/29/2021. 3. Limited evaluation of anatomy due to late gestational age, however, no abnormalities are identified. Umbilical cord lies adjacent to the neck and a nuchal cord cannot be excluded. Recommend sonographic follow-up. Electronically signed by: Darin Perez On 01/29/2021 07:04:45 AM
[2021-01-29] MEDS ORDERED: NIFEdipine 10 MG CAP PO STA (07:46)
[2021-01-29 07:51] VITALS: BP 187/111
[2021-01-29 08:00] VITALS: BP 182/87
--- NOTE | 2021-01-29 08:22 | HPEPDOC ---
Obstetrical History & Physical General Date of Admission January 29, 2021 History of Present Illness 35 yo female presents to the emergency department with lower abdominal pain and vaginal discharge. Pain is dull and diffuse throughout her lower abdomen. Vaginal discharge is white, foul smelling. She was previously seen in the ER on 01/08/2021, and diagnosed with Trichomonas. She received antibiotics for Trichomonas. Upon further evaluation today she was found to be . Patient was not aware of . Ultrasound on the day of admission shows a single intrauterine at 31-4/7 weeks' gestation. Patient has extensive IV drug history. Multiple attempts at IV access in the ER were unsuccessful. She denies WILLS's or vision changes. Information Provided By: Patient Age: 35 : 2 Term: 0 Pre-term: 0 Abortions: 1 Livin Care Care: None Dating Final EDC: March 29, 2021 Final EDC by: 3rd trimester (US) Past Medical History Past Obstetrical History : Past Obstetrical History: Primgravida Past Medical History Medical History Medical Hx: IV drug use Bipolar disorder Anxiety Asthma ? hx Hepatitis C Surgical hx: 1. Cholecystectomy 2. Orthopedic surgery 3. LEEP Social History Marital Status: Family situation: Spouse/partner home Psychosocial History: Anxiety, Other (bipolar) * Smoker: current smoker Drugs: IV drug use Allergies Coded Allergies: cinnamon (Verified Allergy, Severe, ANAPHYLAXIS, 01/29/21) Penicillins (Verified Allergy, Intermediate, RASH, 01/29/21) propoxyphene (Verified Allergy, Intermediate, HIVES, 01/29/21) cefazolin (Verified Allergy, Unknown, 01/29/21) tramadol (Verified Allergy, Unknown, 01/29/21) Medications No Active Prescriptions or Reported Meds Physical Examination Physical Examination GENERAL: Alert and oriented times three. BREAST: . ABDOMEN: Gravid and non-tender to touch. FETUS: Is vertex (VTX) by sterile vaginal examination (SVE), fetus is vertex (VTX) by Cam. HEART RATE: Regular rate and rhythm. LUNGS: Clear to auscultation (CTA). EXTREMITIES: No edema. No clonus. Deep tendon reflexes (DTRs) + . Vital Signs/I&O Vital Signs Date Time Temp Pulse Resp B/P (MAP) Pulse Ox O2 Delivery O2 Flow Rate FiO2 01/29/21 07:51 187/111 01/29/21 07:42 100 18 Room Air 01/29/21 06:30 97 01/29/21 02:43 97.4 Laboratory Data 24H LABS Laboratory Tests 2 01/29/21 03:26: Chlamydia trachomatis DNA (RAJEEV) NEGATIVE, Neisseria gonorrhoeae DNA (RAJEEV) NEGATIVE 01/29/21 03:36: Anion Gap 6L, Glomerular Filtration Rate > 60.0, Uric Acid 8.3H, Calcium Level 9.8, Magnesium Level 1.8, Total Bilirubin 0.3, Direct Bilirubin 0.1, Aspartate Amino Transf (AST/SGOT) 23, Alanine Aminotransferase (ALT/SGPT) 20, Alkaline Phosphatase 162H, C-Reactive Protein, Quantitative 0.66H, Total Protein 5.6L, Albumin 2.0L, Albumin/Globulin Ratio 0.6L, Human Chorionic Gonadotropin, Qual POSITIVEA, Human Chorionic Gonadotropin, Quant [id number] 01/29/21 04:58: Nucleated Red Blood Cells % (auto) 0.0, Erythrocyte Sedimentation Rate 51H 01/29/21 05:55: Urine Color YELLOW, Urine Appearance HAZY, Urine pH 6.0, Urine Specific [place] 1.026, Urine Protein 3+H, Urine Glucose (Auto)(UA) NEGATIVE, Urine Ketones (Auto) NEGATIVE, Urine Blood 1+H, Urine Nitrite NEGATIVE, Urine Bilirubin NEGATIVE, Urine Urobilinogen 0.2, Urine Leukocyte Esterase (Auto) TRACEH, Urine WBC (Auto) 7H, Urine RBC (Auto) 42H, Urine Hyaline Casts (Auto) 3, Urine Bacteria (Auto) 1+H, Urine Squamous Epithelial Cells 1, Urine Mucus (Auto) SMALL, Urine Sperm (Auto) 01/29/21 05:56: Prothrombin Time 13.1, Prothromb Time International Ratio 0.97, Activated Partial Thromboplast Time 22.3L CBC/BMP Laboratory Tests 01/29/21 03:36 01/29/21 04:58 Microbiology Microbiology 01/29/21 Urine Culture, Received Pending 01/29/21 Wet Prep - Final, Complete Anatomy Ultrasound Ultrasound Date: Jan 29, 2021 Placenta Location: Posterior Normal Anatomy: Yes Assessment Variability: Moderate Accelerations: Positive Decelerations: None Tocometer Contractions: Yes Frequency: irregular Strength: palpated as mild Assessment/Plan Assessment Pt is a 35-year-old (G)2 para (P)0010 at 31+4 weeks by 31-week ultrasound presents with new diagnosis of . She has preeclampsia with severe features. Plan Admit for blood pressure management monitoring Start betamethasone series Will need IV access after multiple failed attempts in ER Will need Magnesium sulfate Will likely move toward delivery once stabilized Possible transfer of care to center if able to stabilize HO KEITA MD Jan 29, 2021 08:22
--- NOTE | 2021-01-29 20:29 | ECGEPIP ---
[facility] - ED Test Date: 2021-01-29 Pat Name: RYLAN AGUIAR Department: Room: - Gender: Female Broom Maker: YUMIKO : 1985 Requested By: FAHEEM Soto Order Number: [id number] Reading MD: Sonny Aranda Measurements Intervals [place] Rate: 92 P: 40 [place]: 144 QRS: 82 QRSD: 90 T: 33 QT: 348 QTc: 430 Interpretive Statements Normal sinus rhythm POOR R WAVE PROGRESSION NSTTW ABNORMALITY(S) SIMILAR TO 04/06/20 Electronically Signed on 01-29-2021 20:29:17 EDT by Sonny Aranda
== END 2021-01-29 08:18 | disposition admitted as inpatient to this hospital (09) ==
LOC: M ED 02:41
DX: O14.13 Severe pre-eclampsia, third trimester (principal); O98.313 Other infections with a predominantly sexual mode of transmission complicating pregnancy, third trimester; Z33.1 Pregnant state, incidental; O24.113 Pre-existing type 2 diabetes mellitus, in pregnancy, third trimester; O10.013 Pre-existing essential hypertension complicating pregnancy, third trimester; O99.613 Diseases of the digestive system complicating pregnancy, third trimester; O99.353 Diseases of the nervous system complicating pregnancy, third trimester; O99.343 Other mental disorders complicating pregnancy, third trimester; O99.323 Drug use complicating pregnancy, third trimester; O99.333 Smoking (tobacco) complicating pregnancy, third trimester; Z3A.32 32 weeks gestation of pregnancy; Z88.0 Allergy status to penicillin; Z88.5 Allergy status to narcotic agent; Z88.8 Allergy status to other drugs, medicaments and biological substances; Z91.018 Allergy to other foods
CPT/HCPCS: 36556; 76811; 76820; 80048; 80076; 81001; 83735; 84550; 84702; 84703; 85027; 85610; 85652; 85730; 86140; 87086; 87210; 87491; 87591; 87798; 93005; 93041; 93971; 94760; 96372; 99285; J0702; J1580; Q0162

== ENCOUNTER 2021-01-29 08:32 | Outpatient (CLI) | payer OTHER ==
[2021-01-29] VITALS (29 sets, daily range): BP systolic 130–193; BP diastolic 65–107
[~2021-01-29] VITALS: Ht 162.6 cm; Wt 114.0 kg
[~2021-01-29 08:32] MED LIST changes: +CALCIUM GLUCONATE 1,000MG/10ML VIAL (100MG/ML) (J0610) IV SCH; +LABETALOL 100MG/20ML VIAL IV SCH
[2021-01-29] MEDS ORDERED: LR 1,000 ML IV SCH (08:36)
[2021-01-29] MEDS ORDERED: MAG Sulf (OBGYN) 20GM/500ML 20,000 MG in IV 1 EA IV SCH (08:36)
[2021-01-29] MEDS ORDERED: MAG Sulf (L&D) 4 GM/100 ML 4 GM in IV 1 EA IV ONE (08:40)
[2021-01-29] MEDS ORDERED: diazePAM 10MG/2ML SYRINGE (J3360 PER 5MG) IM STA (09:19)
[2021-01-29] MEDS ORDERED: NIFEdipine 10 MG CAP PO ONE (09:20)
[2021-01-29] MEDS ORDERED: MAGNESIUM SULFATE 50% 5GM/10ML(4MEQ/ML) SYRINGE IM ONE ×2 (09:30→10:00)
[2021-01-29] MEDS ORDERED: LABETALOL 100MG/20ML VIAL IV STA ×3 (10:51→13:14)
--- NOTE | 2021-01-29 11:09 | REP ---
INDICATION: LINE PLACEMENT COMPARISON: None. TECHNIQUE: Portable AP view of the chest FINDINGS: The mediastinum and cardiac silhouette are stable and within normal limits for portable technique. Left IJ line with tip in the SVC. The lung rivero are clear without acute consolidation, effusion, or pneumothorax. Skeletal structures are intact. IMPRESSION: Left IJ line with tip in the SVC. No acute cardiopulmonary process appreciated. <Electronically signed by Darin Conley > 01/29/21 1100
[2021-01-29 11:24] LABS: HEMOGLOBIN 13.7 g/dl (12.0-15.5); MEAN CORPUSCULAR HEMOGLOBIN 30.5 pg (27.0-33.0); MEAN CORPUSCULAR HGB CONC 34.3 g/dl (32.0-36.5); MEAN CORPUSCULAR VOLUME 89.1 fl (80.0-96.0); PLATELET COUNT, AUTOMATED 307 10^3/uL (150-450); RED BLOOD COUNT 4.49 10^6/uL (4.00-5.40); WHITE BLOOD COUNT 14.2 10^3/uL (4.0-10.0)
[2021-01-29 11:34] LABS: INR 0.77; PROTHROMBIN TIME 10.9 SECONDS (12.5-14.3)
[2021-01-29 11:57] LABS: ALT/SGPT 22 U/L (12-78); BILIRUBIN,TOTAL 0.4 MG/DL (0.2-1.0); CREATININE FOR GFR 1.11 MG/DL (0.55-1.30); GLOMERULAR FILTRATION RATE > 60.0 (>60); LDH LACTATE DEHYDROGENASE 296 U/L (84-246); URIC ACID 8.4 MG/DL (2.6-6.0)
[2021-01-29 12:03] LABS: AMPHETAMINES LEVEL URINE NEGATIVE (NEGATIVE); BARBITURATES URINE NEGATIVE (NEGATIVE); BENZODIAZEPINES URINE NEGATIVE (NEGATIVE); CANNABINOIDS URINE NEGATIVE (NEGATIVE); COCAINE METABOLITE URINE POSITIVE (NEGATIVE); METHADONE URINE NEGATIVE (NEGATIVE); OPIATES URINE NEGATIVE (NEGATIVE); PHENCYCLIDINE URINE NEGATIVE (NEGATIVE)
[2021-01-29 12:18] LABS: HEPATITIS B SURFACE ANTIGEN NEGATIVE (NEGATIVE)
[2021-01-29 12:47] LABS: HIV 1&2 SCREEN CENTAUR NEGATIVE (NEGATIVE)
[2021-01-29 13:01] LABS: HEPATITIS C VIRUS ABY INDEX > 11.0 INDEX (<0.8)
--- NOTE | 2021-01-29 17:55 | RO ---
OPERATIVE NOTE DATE OF OPERATION: 01/29/2021 PRE-PROCEDURE DIAGNOSIS: Urgent need for venous access with poor peripheral veins. POSTOPERATIVE DIAGNOSIS: Urgent need for venous access with poor peripheral veins. PROCEDURE PERFORMED: Left internal jugular vein triple lumen central venous catheter placement with ultrasound guidance. SURGEON: Jerzy Whitney MD ANESTHESIA: Local of 1% Xylocaine. INDICATIONS FOR THE PROCEDURE: The patient is a 35-year-old woman who presented to the hospital with advanced and significant hypertension and is in need of urgent section. She has very poor peripheral venous access and I was asked urgently to place a central line. OPERATIVE PROCEDURE: The patient was counseled for the procedure and desired to proceed. She was placed supine in the bed and tilted into a Trendelenburg position. Using the ultrasound, the right and left sides of the neck were inspected. She had an internal jugular vein identified on each side. The right side was somewhat smaller with a vein very similar in size to the carotid artery. The vein on the left was larger, but there was also the concern of trying to thread the catheter across the midline. I elected to attempt placement on the right. The right neck was prepped with ChloraPrep and draped sterilely. The ultrasound probe was also draped and used to inspect the right neck. Local anesthesia was achieved over the course of the jugular vein with 1% Xylocaine. An 18 gauge needle was inserted using ultrasound guidance. I was not able to successfully cannulate the internal jugular vein on the right. The patient's head was then turned to the right and the left neck was then prepped with ChloraPrep. I re-gloved after prepping. The ultrasound showed a much larger vein on the left and again local anesthesia was achieved with 1% Xylocaine. The skin was nicked and the needle was inserted under ultrasound guidance into the vein on the first pass. The guidewire was passed without difficulty. The dilator was passed and the triple lumen catheter was then advanced over the wire without difficulty. It was initially advanced to approximately 20 cm and then backed out to approximately 15. There was excellent blood return from all lumens and these were flushed with saline. The suture wing was attached to the catheter and this was sutured to the skin. There was a small amount of oozing at the insertion site and a suture was placed around the insertion site as well. A CHG OpSite was placed over the insertion site. The patient tolerated the procedure well. Follow up x-ray showed no evidence of pneumothorax with good positioning of the tip of the catheter in the superior vena cava. TREVOR
[2021-01-30 14:29] LABS: CHLAMYDIA DNA AMPLIFICATION NEGATIVE (NEGATIVE); GC DNA AMPLIFICATION NEGATIVE (NEGATIVE)
[2021-01-31 19:07] LABS: HEPATITIS C QUANTITATION 456480 IU/mL (.); HEPATITIS C VIRUS GENOTYPE 3 (.)
== END 2021-01-29 14:45 | disposition home or self-care (01) ==
LOC: M LDI 08:32 → UNDOADMIN 08:32 → M LDO 08:32 → M LDI 08:33 → M LDO 14:45 → UNDODISIN 14:45 → EDSTATUS 04-07 15:20
PROVIDERS: ATTEND Advanced Practice Midwife
DX: O14.13 Severe pre-eclampsia, third trimester (principal); Z3A.31 31 weeks gestation of pregnancy; Z86.59 Personal history of other mental and behavioral disorders
CPT/HCPCS: 59025; 71045; 80307; 82247; 82565; 83615; 84450; 84460; 84550; 85027; 85384; 85610; 85730; 86780; 86803; 86850; 86900; 86901; 87340; 87389; 87491; 87521; 87522; 87591; 87902; C1751; J0610; J3475

== ENCOUNTER 2021-02-04 05:29 | Emergency (ER) | payer OTHER ==
[~2021-02-04] VITALS: Ht 162.6 cm; Wt 129.3 kg
[~2021-02-04 05:29] MED LIST changes: -CALCIUM GLUCONATE 1,000MG/10ML VIAL (100MG/ML) (J0610) IV SCH; -LABETALOL 100MG/20ML VIAL IV SCH
[2021-02-04] MEDS ORDERED: IBUP-1022 (05:39)
[2021-02-04] MEDS ORDERED: OXYC-517 (05:39)
[2021-02-04] MEDS ORDERED: NIFE1TAB52 (05:39)
[2021-02-04 06:41] VITALS: BP 150/85
== END 2021-02-04 06:56 | disposition home or self-care (01) ==
LOC: M ED 05:29
DX: O90.89 Other complications of the puerperium, not elsewhere classified (principal); G89.18 Other acute postprocedural pain; I10 Essential (primary) hypertension; O99.335 Smoking (tobacco) complicating the puerperium; F17.210 Nicotine dependence, cigarettes, uncomplicated; Z88.0 Allergy status to penicillin; Z88.1 Allergy status to other antibiotic agents; Z88.5 Allergy status to narcotic agent; Z91.018 Allergy to other foods; Z79.899 Other long term (current) drug therapy; Z79.891 Long term (current) use of opiate analgesic

== ENCOUNTER 2021-02-08 17:29 | Emergency (ER) | payer OTHER ==
[~2021-02-08] VITALS: Ht 162.6 cm; Wt 114.9 kg
[2021-02-08 17:29] VITALS: BP 210/93
[~2021-02-08 17:29] MED LIST changes: +IBUP-1022; +NIFE1TAB52; +OXYC-517
== END 2021-02-08 18:34 | disposition left against medical advice (07) ==
LOC: M ED 17:29
DX: Z53.21 Procedure and treatment not carried out due to patient leaving prior to being seen by health care provider (principal)

== ENCOUNTER 2021-03-04 01:44 | Emergency (ER) | payer OTHER ==
[~2021-03-04] VITALS: Ht 162.6 cm; Wt 112.6 kg
[2021-03-04 01:46] VITALS: BP 159/92
== END 2021-03-04 02:18 | disposition left against medical advice (07) ==
LOC: M ED 01:44
DX: Z53.21 Procedure and treatment not carried out due to patient leaving prior to being seen by health care provider (principal)

== ENCOUNTER 2021-05-24 17:34 | Emergency (ER) | payer OTHER ==
[~2021-05-24] VITALS: Ht 162.6 cm; Wt 117.9 kg
[~2021-05-24 17:34] MED LIST changes: -DOXY100C37 PO; +DOXY1CAP62 PO
[2021-05-24] MEDS ORDERED: MORPHINE 10 MG/ML 1ML VIAL (J2270) IM ONE (17:40)
[2021-05-24] MEDS ORDERED: NS 1,000 ML IV ONE (18:00)
[2021-05-24 19:32] LABS: VENOUS HCO3 25.9 MEQ/L (23.0-27.0); VENOUS PARTIAL PRESSURE CO2 46.6 mmHg (38.0-50.0); VENOUS PH 7.362 UNITS (7.330-7.430); VENOUS STANDARD HCO3 24.3 MEQ/L; VENOUS TOTAL CO2 27.3 MEQ/L (24.0-28.0)
[2021-05-24] MEDS ORDERED: ISOVUE-370 76% 100ML VIAL As Ordered ONE (19:52)
[2021-05-24 19:53] LABS: INR 0.93; PROTHROMBIN TIME 12.7 SECONDS (12.5-14.3)
--- NOTE | 2021-05-24 20:03 | ROOPDOC ---
[facility] Report Of Operation Report of Operation DATE OF PROCEDURE: 05/24/21 PREPROCEDURE DIAGNOSES: chest pain, lack of peripheral venous access. POSTPROCEDURE DIAGNOSES: same. PROCEDURE PERFORMED: US guided insertion of right IJ central venous triple lumen catheter. SURGEON: Santos Ferraro MD ANESTHESIAlocal anesthesia ESTIMATED BLOOD LOSS: Approximately 5 mL. COMPLICATIONS: none. REMARKS: I was asked to come in and place a central venous catheter on this lady who was brought to the emergency room for complaints of chest pain, suspected to have a non-ST elevated ID. She had prior history of IV drug use and they could not find any peripheral venous access on her.. DESCRIPTION OF PROCEDURE: Patient was quite lethargic but easy to arouse. I verbally confirmed and explained to her the procedure. She has had central lines placed because of difficult peripheral access on prior admissions. Verbal consent was obtained. She was positioned on the stretcher in a slight Trendelenburg position. I used an ultrasound. The internal jugular vein was located and I note that this easily collapses with her taking deep breaths and thus she looks dehydrated. I used a line bundle. The skin of the neck and chest on the right side was prepped with chlorhexidine, white sterile drapes placed. Again the location of the right internal jugular vein was located with ultrasound. An anterior approach was used in the finder needle is able to access the internal jugular vein. Using a modified Seldinger technique, a guidewire was threaded through the needle. The tracks are enlarged with the fascial dilator and the triple-lumen catheter placed at 16 cm at the level of the skin. All 3 ports were tested and noted to be aspirating and flushing well. The catheter was secured to the skin. A chlorhexidine-containing dressing was placed. A postprocedure chest x-ray was obtained and I reviewed this and note good position without any evidence for pneumothorax. SANTOS FERRARO MD May 24, 2021 20:03
[2021-05-24 20:04] LABS: BASO # 0.1 10^3/uL (0.0-0.2); BASO % 0.5 % (0.0-1.0); EOS # 0.1 10^3/uL (0.0-0.5); EOS % 0.5 % (0.0-3.0); HEMATOCRIT 39.4 % (36.0-47.0); HEMOGLOBIN 12.3 g/dl (12.0-15.5); LYMPH # 1.8 10^3/uL (1.5-5.0); MEAN CORPUSCULAR HEMOGLOBIN 25.8 pg (27.0-33.0); MEAN CORPUSCULAR HGB CONC 31.2 g/dl (32.0-36.5); MEAN CORPUSCULAR VOLUME 82.8 fl (80.0-96.0); MONO # 0.6 10^3/uL (0.0-0.8); MONO % 3.6 % (2.0-8.0); NEUTROPHILS # 12.6 10^3/uL (1.5-8.5); NEUTROPHILS % 82.8 % (36.0-66.0); PLATELET COUNT, AUTOMATED 416 10^3/uL (150-450); RED BLOOD COUNT 4.76 10^6/uL (4.00-5.40); WHITE BLOOD COUNT 15.2 10^3/uL (4.0-10.0)
[2021-05-24 20:08] LABS: ALBUMIN 3.5 GM/DL (3.2-5.2); ALT/SGPT 85 U/L (12-78); BILIRUBIN,DIRECT 0.1 MG/DL (0.0-0.2); BILIRUBIN,TOTAL 0.3 MG/DL (0.2-1.0); BLOOD UREA NITROGEN 13 MG/DL (7-18); C REACTIVE PROTEIN QUANTITATIV 1.08 MG/DL (0.00-0.30); CALCIUM LEVEL 9.2 MG/DL (8.5-10.1); CARBON DIOXIDE LEVEL 28 MEQ/L (21-32); CHLORIDE LEVEL 106 MEQ/L (98-107); CK-MB VALUE MASS 6.9 NG/ML (<3.6); CPK CREATINE PHOSPHOKINASE 144 U/L (26-192); CREATININE FOR GFR 0.69 MG/DL (0.55-1.30); GLOMERULAR FILTRATION RATE > 60.0 (>60); GLUCOSE, FASTING 112 MG/DL (70-100); MB/CK RELATIVE INDEX 4.79 (< OR =4); NT-PRO BNP 58 PG/ML (<125); POTASSIUM SERUM 4.4 MEQ/L (3.5-5.1); SODIUM LEVEL 137 MEQ/L (136-145); TOTAL PROTEIN 7.4 GM/DL (6.4-8.2); TROPONIN I 0.63 NG/ML (< 0.10)
[2021-05-24 20:12] LABS: RSV AMPLIFICATION NEGATIVE (NEGATIVE)
--- NOTE | 2021-05-24 20:23 | REPVR ---
PROCEDURE INFORMATION: Exam: XR Chest Exam date and time: 05/24/2021 7:25 PM Age: 35 years old Clinical indication: Other: Central line placement TECHNIQUE: Imaging protocol: XR of the chest. Views: 1 view. COMPARISON: [facility] PORTABLE CHEST X-RAY 01/29/2021 10:48 AM FINDINGS: Tubes, catheters and devices: Right jugular venous line tip located in the right atrium. Lungs: Unremarkable. No consolidation. Pleural spaces: Unremarkable. No pleural effusion. No pneumothorax. Heart/Mediastinum: Cardiomegaly. Bones/joints: Unremarkable. IMPRESSION: 1. Cardiomegaly. 2. No acute findings. Electronically signed by: González Barrett On 05/24/2021 20:22:03 PM
--- NOTE | 2021-05-24 20:26 | REPVR ---
PROCEDURE INFORMATION: Exam: CTA Chest With Contrast Exam date and time: 05/24/2021 7:57 PM Age: 35 years old Clinical indication: Other: Chest pain, eval for pe/dissection TECHNIQUE: Imaging protocol: Computed tomographic angiography of the chest with contrast. 3D rendering (Not supervised by radiologist): MIP and/or 3D reconstructed images were created by the technologist. Radiation optimization: All CT scans at this facility use at least one of these dose optimization techniques: automated exposure control; mA and/or kV adjustment per patient size (includes targeted exams where dose is matched to clinical indication); or iterative reconstruction. Contrast material: ISOVUE 370; Contrast volume: 75 ml; Contrast route: INTRAVENOUS (IV); COMPARISON: [facility] PORTABLE CHEST X-RAY 05/24/2021 7:11 PM FINDINGS: Pulmonary arteries: There are no pulmonary emboli. Aorta: There is no aortic dissection or aneurysm. Lungs: Unremarkable. No consolidation. No masses. Pleural spaces: Unremarkable. No pneumothorax. No pleural effusion. Heart: Unremarkable. No cardiomegaly. No pericardial effusion. Lymph nodes: Unremarkable. No enlarged lymph nodes. Gallbladder and bile ducts: Cholecystectomy. Bones/joints: Unremarkable. No acute fracture. Soft tissues: Unremarkable. IMPRESSION: 1. There is no aortic dissection or aneurysm. 2. There are no pulmonary emboli. 3. No acute pulmonary parenchymal infiltrates. Electronically signed by: González Barrett On 05/24/2021 20:26:11 PM
[2021-05-24 20:33] LABS: ERYTHROCYTE SEDIMENTATION RATE 32 mm/hr (0-20)
[2021-05-24] MEDS ORDERED: CLOPIDOGREL 300 MG TAB (PLAVIX) PO ONE (20:45)
[2021-05-24] MEDS ORDERED: HEPARIN SOD (PORCINE) 5000UNITS/ML 1ML VIAL/SYRINGE IV ONE (20:45)
[2021-05-24] MEDS ORDERED: HEPARIN DRIP 25,000 UNITS in IV 1 EA IV SCH (21:00)
[2021-05-24] MEDS ORDERED: GI COCKTAIL 50ML BTL(HYOSCYAMINE/MAALOX/LIDOCAINE VISCOUS)(1:3:1) PO ONE (21:15)
[2021-05-24] MEDS ORDERED: MORPHINE 2 MG/ML 1ML VIAL (J2270) IV ONE (21:15)
[2021-05-24] MEDS ORDERED: FAMOTIDINE INJ 20MG/2ML VIAL (S0028 PER 1) IVP ONE (21:15)
--- NOTE | 2021-05-24 21:37 | ECGEPIP ---
[facility] - ED Test Date: 2021-05-24 Pat Name: RYLAN AGUIAR Department: Room: - Gender: Female Regional Sales Trainer: : 1985 Requested By: LIZ CASTLE Order Number: [id number] Reading MD: Allegra Ruggiero Measurements Intervals [place] Rate: 85 P: 47 [place]: 164 QRS: 92 QRSD: 92 T: 71 QT: 362 QTc: 430 Interpretive Statements Normal sinus rhythm with sinus arrhythmia Rightward axis ST elevation, consider inferior * ACUTE DC / STEMI clinical correlation Electronically Signed on 05-24-2021 21:37:33 EDT by Allegra Ruggiero
--- NOTE | 2021-05-24 21:39 | ECGEPIP ---
[facility] - ED Test Date: 2021-05-24 Pat Name: RYLAN AGUIAR Department: Room: - Gender: Female Climate Change Analyst: jailene ordonez : 1985 Requested By: LIZ CASTLE Order Number: [id number] Reading MD: Allegra Ruggiero Measurements Intervals [place] Rate: 98 P: 36 PA: 174 QRS: 75 QRSD: 98 T: 75 QT: 370 QTc: 472 Interpretive Statements Normal sinus rhythm ST elevation, consider inferior ACUTE ND / STEMI Consider right ventricular involvement in acute inferior infarct Electronically Signed on 05-24-2021 21:39:09 EDT by Allegra Ruggiero
--- NOTE | 2021-05-24 21:40 | ECGEPIP ---
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
[2021-05-24 21:55] VITALS: BP 131/87
[2021-05-24] MEDS ORDERED: NITROGLYCERIN/D5W 100MCG/ML 25 MG in IV 1 EA IV SCH (21:55)
[2021-05-24] MEDS ORDERED: METOPROLOL SUCC *XL* 25MG TAB (TopROL *XL*) PO ONE (21:55)
[2021-05-24 22:10] VITALS: BP 135/73
--- NOTE | 2021-05-26 20:13 | ECGEPIP ---
[facility] - ED Test Date: 2021-05-24 Pat Name: RYLAN AGUIAR Department: Room: - Gender: Female Crystal Evaluator: Cosme GATICA : 1985 Requested By: LIZ CASTLE Order Number: [id number] Reading MD: Allegra Ruggiero Measurements Intervals [place] Rate: 66 P: 42 [place]: 154 QRS: 71 QRSD: 100 T: 62 QT: 420 QTc: 440 Interpretive Statements Normal sinus rhythm Nonspecific ST abnormality less ectopy compared 05/24/21 Electronically Signed on 05-26-2021 20:13:04 EDT by Allegra Ruggiero
== END 2021-05-24 22:21 | disposition short-term general hospital (02) ==
LOC: M ED 17:34
DX: I21.3 ST elevation (STEMI) myocardial infarction of unspecified site (principal); J45.909 Unspecified asthma, uncomplicated; K21.9 Gastro-esophageal reflux disease without esophagitis; Z86.19 Personal history of other infectious and parasitic diseases; F19.11 Other psychoactive substance abuse, in remission; I51.7 Cardiomegaly; Z79.899 Other long term (current) drug therapy; Z88.0 Allergy status to penicillin; Z88.5 Allergy status to narcotic agent; Z88.1 Allergy status to other antibiotic agents; Z88.8 Allergy status to other drugs, medicaments and biological substances; Z91.018 Allergy to other foods
CPT/HCPCS: 71045; 71275; 80047; 80048; 80076; 82550; 82553; 82803; 83605; 83880; 84702; 85025; 85610; 85652; 85730; 86140; 87040; 87631; 93005; 93041; 96374; 96375; 99285; J1644; J2270; Q9967

== ENCOUNTER → 2021-07-13 | Outpatient (REF) | payer OTHER ==
[~2021-07-13] MED LIST changes: -CLIN150C15 PO; +CLIN150C17 PO; +METH-1177 PO; -METH10TA2 PO
== END ==
LOC: M LAB REF 18:03
PROVIDERS: ATTEND Physician Assistant
DX: R05 Cough (principal)

== ENCOUNTER 2021-12-05 20:32 | Emergency (ER) | payer OTHER ==
[~2021-12-05] VITALS: Ht 162.6 cm; Wt 113.6 kg
[~2021-12-05 20:32] MED LIST changes: +DOXY-443 PO; -DOXY1CAP62 PO
[2021-12-05 22:28] LABS: URINE PREG TEST NEGATIVE (NEGATIVE)
[2021-12-06 00:09] VITALS: BP 132/68
[2021-12-06 00:41] LABS: GC DNA AMPLIFICATION NEGATIVE (NEGATIVE)
== END 2021-12-06 01:37 | disposition left against medical advice (07) ==
LOC: M ED 20:32
DX: Z53.21 Procedure and treatment not carried out due to patient leaving prior to being seen by health care provider (principal)

== ENCOUNTER → 2022-02-12 | Outpatient (REF) | payer OTHER | LOC: M LAB REF 11:56 | PROVIDERS: ATTEND Physician Assistant | DX: L03.316 Cellulitis of umbilicus (principal) ==

== ENCOUNTER → 2022-07-14 | Outpatient (REF) | payer OTHER ==
[2022-07-14 15:59] LABS: GC DNA AMPLIFICATION NEGATIVE (NEGATIVE)
== END ==
LOC: M PLALAB 10:51
PROVIDERS: ATTEND Obstetrics & Gynecology
DX: O99.411 Diseases of the circulatory system complicating pregnancy, first trimester (principal)

== ENCOUNTER 2022-11-11 15:03 | Outpatient (CLI) | payer OTHER ==
[2022-11-11] VITALS (15 sets, daily range): BP systolic 134–176; BP diastolic 67–89
[~2022-11-11] VITALS: Ht 162.6 cm; Wt 118.9 kg
[~2022-11-11 15:03] MED LIST changes: -DOXY-350 PO; +DOXY-444 PO
[2022-11-11] MEDS ORDERED: PRENTAB9 PO (15:38)
[2022-11-11] MEDS ORDERED: ASPI81CH48 PO (15:38)
[2022-11-11] MEDS ORDERED: LR 1,000 ML IV SCH (15:40)
[2022-11-11] MEDS ORDERED: HOME MED LIST COMPLETE! XX SCH (15:40)
[2022-11-11] MEDS: BETAMETHASONE SOLUSPAN 6MG/ML 5ML VIAL IM SCH (15:59)
[2022-11-11 16:21] LABS: BASO # 0.1 10^3/uL (0.0-0.2); BASO % 0.4 % (0.0-1.0); EOS # 0.1 10^3/uL (0.0-0.5); EOS % 1.2 % (0.0-3.0); HEMATOCRIT 36.9 % (36.0-47.0); HEMOGLOBIN 12.5 g/dl (12.0-15.5); LYMPH # 2.4 10^3/uL (1.5-5.0); LYMPH % 20.9 % (24.0-44.0); MEAN CORPUSCULAR HEMOGLOBIN 31.9 pg (27.0-33.0); MEAN CORPUSCULAR HGB CONC 33.9 g/dl (32.0-36.5); MEAN CORPUSCULAR VOLUME 94.1 fl (80.0-96.0); MONO # 0.6 10^3/uL (0.0-0.8); MONO % 5.5 % (2.0-8.0); NEUTROPHILS # 8.3 10^3/uL (1.5-8.5); NEUTROPHILS % 71.5 % (36.0-66.0); PLATELET COUNT, AUTOMATED 351 10^3/uL (150-450); RED BLOOD COUNT 3.92 10^6/uL (4.00-5.40); WHITE BLOOD COUNT 11.6 10^3/uL (4.0-10.0)
[2022-11-11 16:46] LABS: LDH LACTATE DEHYDROGENASE 203 U/L (120-246)
[2022-11-11 16:47] LABS: ALT/SGPT 19 U/L (7.0-40); AST/SGOT 20 U/L (<34); BILIRUBIN,TOTAL 0.4 MG/DL (0.3-1.2); CREATININE FOR GFR 0.52 MG/DL (0.55-1.30); GLOMERULAR FILTRATION RATE > 60.0 (>60)
[2022-11-11 17:49] LABS: TOTAL PROTEIN,RANDOM URINE 25.1 MG/DL (0.0-14.0)
[2022-11-11 17:51] LABS: AMPHETAMINES URINE REFLEX NEGATIVE (NEGATIVE); BARBITURATES URINE REFLEX NEGATIVE (NEGATIVE); BENZODIAZEPINES URINE REFLEX NEGATIVE (NEGATIVE); CANNABINOIDS URINE REFLEX NEGATIVE (NEGATIVE); COCAINE METABOLITE URINE REFLE NEGATIVE (NEGATIVE); METHADONE URINE REFLEX NEGATIVE (NEGATIVE); OPIATES URINE REFLEX NEGATIVE (NEGATIVE); PHENCYCLIDINE URINE REFLEX NEGATIVE (NEGATIVE)
[2022-11-11 17:54] LABS: CREATININE,RANDOM URINE 118.5 MG/DL
[2022-11-11 18:27] LABS: HIV 1&2 SCREEN CENTAUR NEGATIVE (NEGATIVE)
[2022-11-11 19:01] LABS: URIC ACID 4.2 MG/DL (3.1-7.8)
[2022-11-11 19:31] LABS: HEPATITIS C VIRUS ABY INDEX > 11.0 INDEX (<0.8)
[2022-11-12] VITALS (34 sets, daily range): BP systolic 111–178; BP diastolic 56–100
[2022-11-12] MEDS ORDERED: LABETALOL 200 MG TAB PO ONE (05:00)
[2022-11-12] MEDS ORDERED: NIFEdipine 10 MG CAP PO ONE ×2 (06:00→07:00)
[2022-11-12 06:08] LABS: HEMATOCRIT 37.8 % (36.0-47.0); HEMOGLOBIN 12.8 g/dl (12.0-15.5); MEAN CORPUSCULAR HEMOGLOBIN 31.8 pg (27.0-33.0); MEAN CORPUSCULAR HGB CONC 33.9 g/dl (32.0-36.5); PLATELET COUNT, AUTOMATED 386 10^3/uL (150-450); RED BLOOD COUNT 4.02 10^6/uL (4.00-5.40); WHITE BLOOD COUNT 14.5 10^3/uL (4.0-10.0)
[2022-11-12 06:31] LABS: LDH LACTATE DEHYDROGENASE 291 U/L (120-246)
[2022-11-12 06:32] LABS: ALT/SGPT 19 U/L (7.0-40); AST/SGOT 22 U/L (<34); BILIRUBIN,TOTAL 0.4 MG/DL (0.3-1.2); CREATININE FOR GFR 0.47 MG/DL (0.55-1.30); GLOMERULAR FILTRATION RATE > 60.0 (>60)
[2022-11-12 06:33] LABS: URIC ACID 3.7 MG/DL (3.1-7.8)
[2022-11-12] MEDS ORDERED: LABETALOL 200 MG TAB PO SCH ×2 (09:00)
[2022-11-12] MEDS: BETAMETHASONE SOLUSPAN 6MG/ML 5ML VIAL IM SCH (16:00)
[2022-11-12] MEDS ORDERED: NIFEdipine 30MG XL TAB PO SCH (18:20)
[2022-11-12] MEDS ORDERED: NIFE1TAB52 PO (20:11)
== END 2022-11-12 20:30 | disposition home or self-care (01) ==
LOC: M LDO 15:03
PROVIDERS: ATTEND Advanced Practice Midwife
DX: O10.013 Pre-existing essential hypertension complicating pregnancy, third trimester (principal); I25.2 Old myocardial infarction; O34.219 Maternal care for unspecified type scar from previous cesarean delivery; O09.513 Supervision of elderly primigravida, third trimester; O09.293 Supervision of pregnancy with other poor reproductive or obstetric history, third trimester; O98.413 Viral hepatitis complicating pregnancy, third trimester; B18.2 Chronic viral hepatitis C; O99.333 Smoking (tobacco) complicating pregnancy, third trimester; F17.210 Nicotine dependence, cigarettes, uncomplicated; O99.323 Drug use complicating pregnancy, third trimester; F19.11 Other psychoactive substance abuse, in remission; Z88.0 Allergy status to penicillin; Z88.8 Allergy status to other drugs, medicaments and biological substances; Z3A.30 30 weeks gestation of pregnancy

== ENCOUNTER 2022-12-25 18:05 | Inpatient (IN) | payer OTHER ==
[2022-12-25] VITALS (23 sets, daily range): BP systolic 127–207; BP diastolic 61–104
[~2022-12-25] VITALS: Ht 162.6 cm; Wt 123.7 kg
[2022-12-25 19:29] LABS: HEMATOCRIT 37.4 % (36.0-47.0); HEMOGLOBIN 12.6 g/dl (12.0-15.5); MEAN CORPUSCULAR HEMOGLOBIN 30.8 pg (27.0-33.0); MEAN CORPUSCULAR HGB CONC 33.7 g/dl (32.0-36.5); MEAN CORPUSCULAR VOLUME 91.4 fl (80.0-96.0); PLATELET COUNT, AUTOMATED 268 10^3/uL (150-450); RED BLOOD COUNT 4.09 10^6/uL (4.00-5.40); WHITE BLOOD COUNT 10.4 10^3/uL (4.0-10.0)
[2022-12-25 19:41] LABS: CREATININE,RANDOM URINE 141.2 MG/DL
[2022-12-25 19:43] LABS: TOTAL PROTEIN,RANDOM URINE 643.4 MG/DL (0.0-14.0)
[2022-12-25 19:53] LABS: URIC ACID 5.1 MG/DL (3.1-7.8)
[2022-12-25 19:56] LABS: ALT/SGPT 24 U/L (7.0-40); AST/SGOT 21 U/L (<34); BILIRUBIN,TOTAL 0.4 MG/DL (0.3-1.2); CREATININE FOR GFR 0.59 MG/DL (0.55-1.30); GLOMERULAR FILTRATION RATE > 60.0 (>60); LDH LACTATE DEHYDROGENASE 257 U/L (120-246)
[2022-12-25] MEDS ORDERED: LACTATED RINGER'S 1000 ML IV STA (20:48)
[2022-12-25] MEDS ORDERED: CARBOPROST TROMETHAMINE 250 MCG/ML AMP IM PRN (20:50)
[2022-12-25] MEDS ORDERED: TRANEXAMIC ACID INJection 1,000 MG in NS 100 ML IV PRN (20:50)
[2022-12-25] MEDS ORDERED: LR 1,000 ML IV SCH (20:50)
[2022-12-25] MEDS ORDERED: BICITRA 30ML SOLN UDC PO ONE (20:55)
[2022-12-25] MEDS ORDERED: CLINDAMYCIN 900 MG in IV 1 EA IV ONE (20:55)
[2022-12-25] MEDS ORDERED: AZTREONAM 1 GM in D5W MINI-BAG PLUS 50 ML IV ONE ×2 (20:55→22:45)
[2022-12-25] MEDS ORDERED: ONDANSETRON 4MG 2ML VIAL As Ordered ONE (21:00)
[2022-12-25] MEDS ORDERED: ACETAMINOPHEN 1000MG 100ML IV BAG As Ordered ONE (21:00)
[2022-12-25] MEDS ORDERED: KETOROLAC 60MG 2ML VIAL As Ordered ONE (21:00)
[2022-12-25] MEDS ORDERED: OXYTOCIN 30UNITS IN 0.9% NaCl 500ML IV BAG As Ordered ONE ×2 (21:00→22:29)
[2022-12-25] MEDS ORDERED: MORPHINE PRES-FREE INJ 10 MG/10 ML VIAL As Ordered ONE (21:00)
[2022-12-25] MEDS ORDERED: RHOGAM 300MCG (1500IU) INJ IM SCH (21:40)
[2022-12-25] MEDS ORDERED: MOM 30ML SUSPENSION UDC PO PRN (21:40)
[2022-12-25] MEDS ORDERED: ePHEDrine SULFATE 25 MG/5 ML(5MG/ML) SYRINGE As Ordered ONE ×2 (21:40→21:53)
[2022-12-25] MEDS ORDERED: ONDANSETRON 4MG 2ML VIAL IV PRN (21:40)
[2022-12-25] MEDS ORDERED: OXYTOCIN DRIP 30 UNITS in IV 1 EA IV SCH (21:40)
[2022-12-25] MEDS ORDERED: PHENYLephrine 500MCG 5ML (100MCG/ML) SYRINGE As Ordered ONE (21:53)
[2022-12-25] MEDS ORDERED: MEPERIDINE 25 MG/ML 1ML VIAL IV PRN (22:30)
[2022-12-25] MEDS ORDERED: METOCLOPRAMIDE INJ 10MG/2ML VIAL IV PRN (22:30)
[2022-12-25] MEDS ORDERED: NALOXONE INJ 0.4MG/1ML VIAL IV PRN (22:30)
[2022-12-25] MEDS ORDERED: MORPHINE 2 MG/ML 1ML VIAL IV PRN (22:30)
[2022-12-25] MEDS ORDERED: **NOTE PATIENT COMMENT** MISC XX SCH (22:30)
[2022-12-25] MEDS ORDERED: PERCOCET 5MG/325MG TAB PO PRN (22:30)
[2022-12-25] MEDS ORDERED: diphenhydrAMINE 50MG/ML VIAL IV PRN (22:30)
[2022-12-25] MEDS ORDERED: MAG Sulf (L&D) 4 GM/100 ML 4 GM in IV 1 EA IV ONE (22:55)
[2022-12-25] MEDS ORDERED: CALCIUM GLUCONATE 1,000 MG in D5W MINI-BAG PLUS 100 ML IV PRN (22:55)
[2022-12-25] MEDS: SLF 3 ML SYR IV SCH (23:00)
[2022-12-25] MEDS: LR 1,000 ML IV SCH (23:01)
[2022-12-26] VITALS (22 sets, daily range): BP systolic 140–172; BP diastolic 74–104
[2022-12-26] MEDS: MAG Sulf (OBGYN) 20GM/500ML 20,000 MG in IV 1 EA IV SCH ×2 (00:47→08:55)
[2022-12-26] MEDS: KETOROLAC 30 MG/ML 1ML VIAL IV SCH ×3 (03:11→15:43)
[2022-12-26] MEDS: LR 1,000 ML IV SCH ×2 (06:44→13:40)
[2022-12-26 07:00] LABS: HEMATOCRIT 34.6 % (36.0-47.0); HEMOGLOBIN 11.7 g/dl (12.0-15.5); MEAN CORPUSCULAR HEMOGLOBIN 31.1 pg (27.0-33.0); MEAN CORPUSCULAR HGB CONC 33.8 g/dl (32.0-36.5); PLATELET COUNT, AUTOMATED 269 10^3/uL (150-450); RED BLOOD COUNT 3.76 10^6/uL (4.00-5.40); WHITE BLOOD COUNT 12.5 10^3/uL (4.0-10.0)
[2022-12-26] MEDS: SLF 3 ML SYR IV SCH ×2 (07:00→15:00)
[2022-12-26] MEDS ORDERED: NIFEdipine 10 MG CAP PO ONE (07:00)
[2022-12-26] MEDS: NIFEdipine 30MG XL TAB PO SCH (09:02)
[2022-12-26] MEDS: DOCUSATE SODIUM 100MG CAPSULE PO SCH ×2 (09:03→20:31)
[2022-12-26] MEDS: PRENATAL VITAMINS CHEWABLE TABLET PO SCH (09:03)
[2022-12-26] MEDS: SIMETHICONE 80MG CHEW TAB PO PRN (15:43)
[2022-12-26] MEDS: ACETAMINOPHEN 500 MG TAB PO PRN (15:44)
[2022-12-26] MEDS: oxyCODONE 5MG TAB PO PRN (19:49)
[2022-12-26] MEDS: IBUPROFEN 800 MG TAB PO SCH (23:47)
[2022-12-27] VITALS (8 sets, daily range): BP systolic 130–168; BP diastolic 15–90
[2022-12-27] MEDS: ACETAMINOPHEN 500 MG TAB PO PRN ×3 (03:34→16:38)
[2022-12-27] MEDS: SIMETHICONE 80MG CHEW TAB PO PRN ×3 (07:31→22:01)
[2022-12-27] MEDS: IBUPROFEN 800 MG TAB PO SCH ×3 (07:33→22:01)
[2022-12-27] MEDS ORDERED: MEASLES,MUMPS,RUBELLA VACCINE INJ (MMR-II) SC.IMMUN ONE (09:00)
[2022-12-27] MEDS: PRENATAL VITAMINS CHEWABLE TABLET PO SCH (09:24)
[2022-12-27] MEDS: DOCUSATE SODIUM 100MG CAPSULE PO SCH ×2 (09:24→21:59)
[2022-12-27] MEDS: NIFEdipine 30MG XL TAB PO SCH (09:28)
[2022-12-27] MEDS: oxyCODONE 5MG TAB PO PRN ×2 (17:00→22:03)
[2022-12-27] MEDS ORDERED: ALBUTEROL 90 MCG/ACT 8GM HFA INHALER INH PRN (17:00)
[2022-12-28] VITALS (14 sets, daily range): BP systolic 130–178; BP diastolic 68–92
[2022-12-28] MEDS: IBUPROFEN 800 MG TAB PO SCH ×2 (06:42→14:44)
[2022-12-28] MEDS: PRENATAL VITAMINS CHEWABLE TABLET PO SCH (08:32)
[2022-12-28] MEDS: DOCUSATE SODIUM 100MG CAPSULE PO SCH ×2 (08:32→20:11)
[2022-12-28] MEDS: oxyCODONE 5MG TAB PO PRN ×2 (08:34→15:04)
[2022-12-28] MEDS: NIFEdipine 30MG XL TAB PO SCH (08:35)
[2022-12-28] MEDS ORDERED: LABETALOL 200 MG TAB PO STA (09:58)
[2022-12-28 10:45] LABS: HEMOGLOBIN 11.6 g/dl (12.0-15.5); MEAN CORPUSCULAR HEMOGLOBIN 30.9 pg (27.0-33.0); MEAN CORPUSCULAR HGB CONC 33.1 g/dl (32.0-36.5); MEAN CORPUSCULAR VOLUME 93.3 fl (80.0-96.0); PLATELET COUNT, AUTOMATED 338 10^3/uL (150-450); RED BLOOD COUNT 3.75 10^6/uL (4.00-5.40); WHITE BLOOD COUNT 14.2 10^3/uL (4.0-10.0)
[2022-12-28 11:10] LABS: LDH LACTATE DEHYDROGENASE 293 U/L (120-246)
[2022-12-28 11:11] LABS: ALT/SGPT 34 U/L (7.0-40); AST/SGOT 40 U/L (<34); BILIRUBIN,TOTAL 0.5 MG/DL (0.3-1.2); CREATININE FOR GFR 0.51 MG/DL (0.55-1.30); GLOMERULAR FILTRATION RATE > 60.0 (>60)
[2022-12-28 11:17] LABS: URIC ACID 3.6 MG/DL (3.1-7.8)
[2022-12-28] MEDS ORDERED: LABETALOL 100MG/20ML VIAL IV STA (11:34)
[2022-12-28] MEDS ORDERED: FAMOTIDINE 20 MG TAB PO ONE (17:05)
[2022-12-28] MEDS: LABETALOL 200 MG TAB PO SCH (20:11)
[2022-12-29 02:07] VITALS: BP 135/78
[2022-12-29] MEDS: IBUPROFEN 800 MG TAB PO SCH ×2 (02:15→07:00)
[2022-12-29] MEDS: oxyCODONE 5MG TAB PO PRN (02:19)
[2022-12-29 05:30] VITALS: BP 139/75
[2022-12-29] MEDS ORDERED: FAMOTIDINE 20 MG TAB PO SCH (09:00)
[2022-12-29 10:00] VITALS: BP 120/88
[2022-12-29] MEDS: PRENATAL VITAMINS CHEWABLE TABLET PO SCH (10:00)
[2022-12-29 10:01] VITALS: BP 120/88
[2022-12-29] MEDS: DOCUSATE SODIUM 100MG CAPSULE PO SCH (10:01)
[2022-12-29] MEDS: NIFEdipine 30MG XL TAB PO SCH (10:01)
[2022-12-29] MEDS: LABETALOL 200 MG TAB PO SCH (10:01)
[2022-12-29] MEDS ORDERED: LABE20TAB PO (15:04)
[2022-12-29] MEDS ORDERED: ACET-683 PO (15:04)
[2022-12-29] MEDS ORDERED: IBUP1TAB6 PO (15:04)
[2022-12-29] MEDS ORDERED: OXYC-517 PO (15:04)
[2022-12-29] MEDS ORDERED: COLA100C5 PO (15:04)
== END 2022-12-29 15:40 | disposition home or self-care (01) | DRG 540 ==
LOC: M LDO 18:05 → M LDI 18:48 → M OBS 12-26 00:45
PROVIDERS: ADMIT Advanced Practice Midwife; ATTEND Obstetrics & Gynecology
PROC: 10D00Z1 Extraction of Products of Conception, Low, Open Approach (ICD-10-PCS; principal; 2022-12-25 21:49)
DX: O11.4 Pre-existing hypertension with pre-eclampsia, complicating childbirth (principal); E66.9 Obesity, unspecified; O99.214 Obesity complicating childbirth; O34.211 Maternal care for low transverse scar from previous cesarean delivery; Z3A.36 36 weeks gestation of pregnancy; O99.334 Smoking (tobacco) complicating childbirth; F17.210 Nicotine dependence, cigarettes, uncomplicated; I25.2 Old myocardial infarction; Z88.0 Allergy status to penicillin; Z88.1 Allergy status to other antibiotic agents; Z88.5 Allergy status to narcotic agent; Z88.8 Allergy status to other drugs, medicaments and biological substances; Z79.82 Long term (current) use of aspirin; Z79.899 Other long term (current) drug therapy; Z95.5 Presence of coronary angioplasty implant and graft; Z90.49 Acquired absence of other specified parts of digestive tract; Z37.0 Single live birth

== ENCOUNTER → 2022-12-25 | Outpatient (REF) | payer OTHER ==
[~2022-12-25] MED LIST changes: +ASPI81CH48 PO; +NIFE1TAB52 PO; +PRENTAB9 PO
== END ==
LOC: M SFHCWAGY 13:06
PROVIDERS: ATTEND Advanced Practice Midwife
DX: O34.219 Maternal care for unspecified type scar from previous cesarean delivery (principal)

== ENCOUNTER 2023-03-22 21:59 | Emergency (ER) | payer OTHER ==
[~2023-03-22] VITALS: Ht 162.6 cm; Wt 117.0 kg
[~2023-03-22 21:59] MED LIST changes: +ETON1VAG7 VA; +IBUP1TAB6 PO; +LABE20TAB PO; -NUVAMIS2 VA; +OXYC-517 PO
[2023-03-22 22:03] VITALS: BP 130/100
== END 2023-03-23 00:44 | disposition left against medical advice (07) ==
LOC: M ED 21:59
DX: R10.2 Pelvic and perineal pain (principal); Z53.21 Procedure and treatment not carried out due to patient leaving prior to being seen by health care provider

== ENCOUNTER 2023-07-08 09:34 | Emergency (ER) | payer OTHER ==
[~2023-07-08] VITALS: Ht 162.6 cm; Wt 118.6 kg
[2023-07-08 14:10] LABS: BASO # 0.1 10^3/uL (0.0-0.2); BASO % 1.1 % (0.0-1.0); EOS # 0.5 10^3/uL (0.0-0.5); EOS % 4.7 % (0.0-3.0); HEMATOCRIT 45.5 % (36.0-47.0); HEMOGLOBIN 14.7 g/dl (12.0-15.5); LYMPH # 2.3 10^3/uL (1.5-5.0); LYMPH % 20.8 % (24.0-44.0); MEAN CORPUSCULAR HEMOGLOBIN 28.7 pg (27.0-33.0); MEAN CORPUSCULAR HGB CONC 32.3 g/dl (32.0-36.5); MEAN CORPUSCULAR VOLUME 88.9 fl (80.0-96.0); MONO # 0.5 10^3/uL (0.0-0.8); MONO % 4.6 % (2.0-8.0); NEUTROPHILS # 7.7 10^3/uL (1.5-8.5); NEUTROPHILS % 68.4 % (36.0-66.0); PLATELET COUNT, AUTOMATED 283 10^3/uL (150-450); RED BLOOD COUNT 5.12 10^6/uL (4.00-5.40); WHITE BLOOD COUNT 11.2 10^3/uL (4.0-10.0)
[2023-07-08 14:36] LABS: BLOOD UREA NITROGEN 15 MG/DL (9-23); CALCIUM LEVEL 9.1 MG/DL (8.5-10.1); CARBON DIOXIDE LEVEL 26 MMOL/L (20-31); CHLORIDE LEVEL 106 MMOL/L (98-107); GLOMERULAR FILTRATION RATE > 60.0 (>60); GLUCOSE, FASTING 93 MG/DL (60-100); MAGNESIUM LEVEL 1.9 MG/DL (1.8-2.4); POTASSIUM SERUM 4.4 MMOL/L (3.5-5.1); SODIUM LEVEL 138 MMOL/L (136-145)
[2023-07-08 14:55] LABS: ERYTHROCYTE SEDIMENTATION RATE 32 mm/hr (0-20)
[2023-07-08 14:58] LABS: RSV AMPLIFICATION NEGATIVE (NEGATIVE)
[2023-07-08] MEDS: METOCLOPRAMIDE INJ 10MG/2ML VIAL IV ONE ×2 (15:25→15:32)
[2023-07-08] MEDS: KETOROLAC 30 MG/ML 1ML VIAL IV ONE ×2 (15:25→15:31)
[2023-07-08] MEDS: NS 1,000 ML IV ONE ×2 (15:25→15:31)
[2023-07-08] MEDS ORDERED: dexAMETHasone 20MG/5ML VIAL IV ONE (15:25)
[2023-07-08] MEDS ORDERED: predniSONE 20 MG TAB PO ONE (15:50)
[2023-07-08] MEDS ORDERED: KETOROLAC 60MG 2ML VIAL IM ONE (15:50)
[2023-07-08] MEDS ORDERED: METOCLOPRAMIDE 10MG TAB PO ONE (15:50)
[2023-07-08] MEDS ORDERED: NAPR-837 PO (16:14)
[2023-07-08 16:38] VITALS: BP 120/80; TEMP 97; O2SAT 99
== END 2023-07-08 16:40 | disposition home or self-care (01) ==
LOC: M ED 09:34
DX: R51.9 Headache, unspecified (principal); I25.2 Old myocardial infarction; B19.20 Unspecified viral hepatitis C without hepatic coma; R56.9 Unspecified convulsions; F17.200 Nicotine dependence, unspecified, uncomplicated; Z88.0 Allergy status to penicillin; Z88.8 Allergy status to other drugs, medicaments and biological substances; Z91.018 Allergy to other foods; Z88.1 Allergy status to other antibiotic agents
CPT/HCPCS: 70450; 80048; 83735; 85025; 85652; 87631; 96372; 96374; 96375; 99284; J1100; J1885; J7512

== ENCOUNTER 2023-08-26 06:39 | Emergency (ER) | payer OTHER ==
[~2023-08-26] VITALS: Ht 162.6 cm; Wt 114.0 kg
[~2023-08-26 06:39] MED LIST changes: +NAPR-837 PO
[2023-08-26] MEDS ORDERED: NS 1,000 ML IV ONE (07:45)
[2023-08-26 09:07] LABS: BASO # 0.1 10^3/uL (0.0-0.2); EOS # 0.3 10^3/uL (0.0-0.5); EOS % 2.4 % (0.0-3.0); HEMATOCRIT 46.1 % (36.0-47.0); HEMOGLOBIN 15.7 g/dl (12.0-15.5); MEAN CORPUSCULAR HEMOGLOBIN 30.7 pg (27.0-33.0); MEAN CORPUSCULAR HGB CONC 34.1 g/dl (32.0-36.5); MONO # 0.6 10^3/uL (0.0-0.8); MONO % 5.5 % (2.0-8.0); NEUTROPHILS # 7.6 10^3/uL (1.5-8.5); NEUTROPHILS % 71.7 % (36.0-66.0); PLATELET COUNT, AUTOMATED 279 10^3/uL (150-450); RED BLOOD COUNT 5.12 10^6/uL (4.00-5.40); WHITE BLOOD COUNT 10.6 10^3/uL (4.0-10.0)
[2023-08-26] MEDS ORDERED: KETOROLAC 30 MG/ML 1ML VIAL IV ONE (09:20)
[2023-08-26 09:35] LABS: LIPASE 29 U/L (12-53)
[2023-08-26 09:36] LABS: ALBUMIN 3.8 G/DL (3.2-5.2); ALKALINE PHOSPHATASE 97 U/L (46-116); ALT/SGPT 54 U/L (7.0-40); AST/SGOT 38 U/L (<34); BILIRUBIN,DIRECT 0.3 MG/DL (<0.4); BILIRUBIN,TOTAL 0.7 MG/DL (0.3-1.2); BLOOD UREA NITROGEN 14 MG/DL (9-23); CALCIUM LEVEL 9.6 MG/DL (8.5-10.1); CARBON DIOXIDE LEVEL 27 MMOL/L (20-31); CHLORIDE LEVEL 104 MMOL/L (98-107); CREATININE FOR GFR 0.78 MG/DL (0.55-1.30); GLOMERULAR FILTRATION RATE > 60.0 (>60); GLUCOSE, FASTING 87 MG/DL (60-100); SODIUM LEVEL 140 MMOL/L (136-145); TOTAL PROTEIN 7.7 G/DL (5.7-8.2)
[2023-08-26 10:15] VITALS: BP 144/66; O2SAT 94
[2023-08-26 10:18] VITALS: TEMP 98.3
[2023-08-26] MEDS ORDERED: CIPR500T39 PO (10:24)
[2023-08-26] MEDS ORDERED: HYDR1CRE30 TOP (10:52)
== END 2023-08-26 10:56 | disposition home or self-care (01) ==
LOC: M ED 06:39
DX: N10 Acute pyelonephritis (principal); F17.210 Nicotine dependence, cigarettes, uncomplicated; Z88.0 Allergy status to penicillin; Z88.8 Allergy status to other drugs, medicaments and biological substances; Z79.899 Other long term (current) drug therapy
CPT/HCPCS: 74176; 80048; 80076; 81001; 83690; 84702; 85025; 87088; 87186; 93041; 96361; 96374; 99284; J1885

== ENCOUNTER 2023-10-28 16:43 | Emergency (ER) | payer OTHER ==
[~2023-10-28] VITALS: Ht 162.6 cm; Wt 120.6 kg
[~2023-10-28 16:43] MED LIST changes: +CIPR500T39 PO; +HYDR1CRE30 TOP
[2023-10-28] MEDS ORDERED: MUCI600T31 PO (16:56)
[2023-10-28 18:09] LABS: RSV AMPLIFICATION NEGATIVE (NEGATIVE)
[2023-10-28] MEDS ORDERED: MACR100C43 PO (19:45)
[2023-10-28] MEDS ORDERED: BENZ200C70 PO (19:45)
[2023-10-28] MEDS: NITROFURANTOIN (MACROBID) 100 MG CAP PO ONE (19:52)
[2023-10-28 19:55] VITALS: BP 154/92; TEMP 98.1; O2SAT 96
== END 2023-10-28 19:57 | disposition home or self-care (01) ==
LOC: M ED 16:43
DX: J06.9 Acute upper respiratory infection, unspecified (principal); N39.0 Urinary tract infection, site not specified; I25.10 Atherosclerotic heart disease of native coronary artery without angina pectoris; I25.2 Old myocardial infarction; G43.909 Migraine, unspecified, not intractable, without status migrainosus; R56.9 Unspecified convulsions; B19.20 Unspecified viral hepatitis C without hepatic coma; F17.200 Nicotine dependence, unspecified, uncomplicated; Z88.0 Allergy status to penicillin; Z88.1 Allergy status to other antibiotic agents; Z91.018 Allergy to other foods; Z88.8 Allergy status to other drugs, medicaments and biological substances; Z79.899 Other long term (current) drug therapy

== ENCOUNTER 2023-11-02 08:35 | Emergency (ER) | payer OTHER ==
[~2023-11-02] VITALS: Ht 162.6 cm; Wt 119.5 kg
[~2023-11-02 08:35] MED LIST changes: +BENZ200C70 PO; +MACR100C43 PO; +MUCI600T31 PO
[2023-11-02 08:39] VITALS: BP 135/87; TEMP 97.5; O2SAT 94
[2023-11-02] MEDS ORDERED: IBUP200C25 PO (08:47)
== END 2023-11-02 10:06 | disposition left against medical advice (07) ==
LOC: M ED 08:35
DX: Z53.21 Procedure and treatment not carried out due to patient leaving prior to being seen by health care provider (principal)

== ENCOUNTER 2023-12-10 02:51 | Emergency (ER) | payer OTHER ==
[~2023-12-10] VITALS: Ht 162.6 cm; Wt 120.7 kg
[~2023-12-10 02:51] MED LIST changes: +IBUP200C25 PO
[2023-12-10 07:09] LABS: BASO # 0.1 10^3/uL (0.0-0.2); BASO % 0.7 % (0.0-1.0); EOS # 0.1 10^3/uL (0.0-0.5); EOS % 1.1 % (0.0-3.0); HEMATOCRIT 44.6 % (36.0-47.0); HEMOGLOBIN 14.9 g/dl (12.0-15.5); LYMPH # 1.1 10^3/uL (1.5-5.0); LYMPH % 8.6 % (24.0-44.0); MEAN CORPUSCULAR HEMOGLOBIN 30.8 pg (27.0-33.0); MEAN CORPUSCULAR HGB CONC 33.4 g/dl (32.0-36.5); MEAN CORPUSCULAR VOLUME 92.3 fl (80.0-96.0); MONO # 0.8 10^3/uL (0.0-0.8); MONO % 6.9 % (2.0-8.0); NEUTROPHILS # 10.1 10^3/uL (1.5-8.5); NEUTROPHILS % 82.1 % (36.0-66.0); PLATELET COUNT, AUTOMATED 247 10^3/uL (150-450); RED BLOOD COUNT 4.83 10^6/uL (4.00-5.40); WHITE BLOOD COUNT 12.3 10^3/uL (4.0-10.0)
[2023-12-10 07:24] LABS: ALBUMIN 3.3 G/DL (3.2-5.2); BILIRUBIN,DIRECT 0.2 MG/DL (<0.4); BILIRUBIN,TOTAL 0.5 MG/DL (0.3-1.2); TOTAL PROTEIN 6.9 G/DL (5.7-8.2)
[2023-12-10] MEDS ORDERED: ISOVUE-370 76% 100ML VIAL As Ordered ONE (08:21)
[2023-12-10] MEDS: NS 1,000 ML IV ONE (08:29)
[2023-12-10] MEDS: KETOROLAC 30 MG/ML 1ML VIAL IV ONE (08:29)
[2023-12-10] MEDS: LevoFLOXacin IV 500 MG in IV 1 EA IV ONE (08:31)
[2023-12-10] MEDS ORDERED: PHEN-501 PO (09:41)
[2023-12-10] MEDS ORDERED: SULF1TAB23 PO (09:41)
[2023-12-10 10:36] VITALS: BP 136/79; TEMP 97.6; O2SAT 97
== END 2023-12-10 10:50 | disposition home or self-care (01) ==
LOC: M ED 02:51
DX: N30.00 Acute cystitis without hematuria (principal); I25.2 Old myocardial infarction; I10 Essential (primary) hypertension; E66.9 Obesity, unspecified; F17.200 Nicotine dependence, unspecified, uncomplicated; Z95.5 Presence of coronary angioplasty implant and graft; Z87.448 Personal history of other diseases of urinary system; Z79.899 Other long term (current) drug therapy; Z88.0 Allergy status to penicillin; Z88.1 Allergy status to other antibiotic agents; Z88.5 Allergy status to narcotic agent; Z88.8 Allergy status to other drugs, medicaments and biological substances; Z91.018 Allergy to other foods
CPT/HCPCS: 74177; 80047; 80076; 81001; 83690; 84702; 85025; 87088; 87186; 93005; 96361; 96374; 96375; 99284; J1885; J1956; Q9967

== ENCOUNTER 2024-05-30 23:14 | Emergency (ER) | payer OTHER ==
[~2024-05-30] VITALS: Ht 162.6 cm; Wt 122.7 kg
[~2024-05-30 23:14] MED LIST changes: +DOXY-323 PO; +DOXY-440 PO; -DOXY-443 PO; -DOXY-444 PO; +PHEN-501 PO; +SULF1TAB23 PO
[2024-05-30 23:22] VITALS: BP 131/74; TEMP 97.5; O2SAT 96
[2024-05-31 00:37] LABS: BASO # 0.1 10^3/uL (0.0-0.2); BASO % 0.9 % (0.0-1.0); EOS # 0.3 10^3/uL (0.0-0.5); EOS % 3.1 % (0.0-3.0); HEMATOCRIT 47.2 % (36.0-47.0); HEMOGLOBIN 15.9 g/dl (12.0-15.5); LYMPH # 1.9 10^3/uL (1.5-5.0); LYMPH % 17.6 % (24.0-44.0); MEAN CORPUSCULAR HEMOGLOBIN 30.9 pg (27.0-33.0); MEAN CORPUSCULAR HGB CONC 33.7 g/dl (32.0-36.5); MEAN CORPUSCULAR VOLUME 91.7 fl (80.0-96.0); MONO # 0.9 10^3/uL (0.0-0.8); MONO % 8.1 % (2.0-8.0); NEUTROPHILS # 7.5 10^3/uL (1.5-8.5); NEUTROPHILS % 69.7 % (36.0-66.0); PLATELET COUNT, AUTOMATED 227 10^3/uL (150-450); RED BLOOD COUNT 5.15 10^6/uL (4.00-5.40); WHITE BLOOD COUNT 10.8 10^3/uL (4.0-10.0)
[2024-05-31 00:40] LABS: CK-MB VALUE MASS < 1.0 NG/ML (<3.6)
[2024-05-31 00:41] LABS: BLOOD UREA NITROGEN 22 MG/DL (9-23); CALCIUM LEVEL 9.1 MG/DL (8.5-10.1); CARBON DIOXIDE LEVEL 23 MMOL/L (20-31); CHLORIDE LEVEL 105 MMOL/L (98-107); CREATININE FOR GFR 0.79 MG/DL (0.55-1.30); GLOMERULAR FILTRATION RATE > 60.0 (>60); GLUCOSE, FASTING 221 MG/DL (60-100); POTASSIUM SERUM 4.6 MMOL/L (3.5-5.1); SODIUM LEVEL 136 MMOL/L (136-145)
[2024-05-31 00:42] LABS: CPK CREATINE PHOSPHOKINASE 88 U/L (34-145); MB/CK RELATIVE INDEX 1.13 (< OR =4)
[2024-05-31 01:52] LABS: CK-MB VALUE MASS < 1.0 NG/ML (<3.6)
[2024-05-31 01:57] LABS: CPK CREATINE PHOSPHOKINASE 86 U/L (34-145); MB/CK RELATIVE INDEX 1.16 (< OR =4)
[2024-05-31] MEDS ORDERED: METF500T13 PO (02:10)
[2024-05-31] MEDS ORDERED: ASPI81TA26 PO (02:10)
== END 2024-05-31 02:45 | disposition home or self-care (01) ==
LOC: M ED 23:14
DX: R07.9 Chest pain, unspecified (principal); R73.9 Hyperglycemia, unspecified; I25.119 Atherosclerotic heart disease of native coronary artery with unspecified angina pectoris; I25.2 Old myocardial infarction; I10 Essential (primary) hypertension; F17.210 Nicotine dependence, cigarettes, uncomplicated; Z88.0 Allergy status to penicillin; Z88.8 Allergy status to other drugs, medicaments and biological substances; Z91.018 Allergy to other foods; Z79.1 Long term (current) use of non-steroidal anti-inflammatories (NSAID); Z79.84 Long term (current) use of oral hypoglycemic drugs

== ENCOUNTER 2024-08-01 12:43 | Emergency (ER) | payer OTHER ==
[~2024-08-01] VITALS: Ht 162.6 cm; Wt 125.9 kg
[~2024-08-01 12:43] MED LIST changes: +ASPI81TA26 PO; -DOXY-323 PO; +DOXY-441 PO; +METF500T13 PO
[2024-08-01 12:46] VITALS: BP 140/76; TEMP 97; O2SAT 97
== END 2024-08-01 14:24 | disposition left against medical advice (07) ==
LOC: M ED 12:43
DX: Z53.21 Procedure and treatment not carried out due to patient leaving prior to being seen by health care provider (principal)

== ENCOUNTER 2024-08-29 01:46 | Emergency (ER) | payer OTHER ==
[~2024-08-29] VITALS: Ht 170.2 cm; Wt 125.5 kg
[2024-08-29 02:19] LABS: BASO # 0.1 10^3/uL (0.0-0.2); BASO % 0.9 % (0.0-1.0); EOS # 0.4 10^3/uL (0.0-0.5); EOS % 3.7 % (0.0-3.0); HEMATOCRIT 44.7 % (36.0-47.0); HEMOGLOBIN 15.4 g/dl (12.0-15.5); LYMPH # 2.7 10^3/uL (1.5-5.0); LYMPH % 25.3 % (24.0-44.0); MEAN CORPUSCULAR HEMOGLOBIN 31.1 pg (27.0-33.0); MEAN CORPUSCULAR HGB CONC 34.5 g/dl (32.0-36.5); MEAN CORPUSCULAR VOLUME 90.3 fl (80.0-96.0); MONO # 0.8 10^3/uL (0.0-0.8); MONO % 7.5 % (2.0-8.0); NEUTROPHILS # 6.5 10^3/uL (1.5-8.5); NEUTROPHILS % 61.6 % (36.0-66.0); PLATELET COUNT, AUTOMATED 242 10^3/uL (150-450); RED BLOOD COUNT 4.95 10^6/uL (4.00-5.40); WHITE BLOOD COUNT 10.5 10^3/uL (4.0-10.0)
[2024-08-29 02:52] LABS: LIPASE 31 U/L (12-53)
[2024-08-29 02:54] LABS: ALBUMIN 3.3 G/DL (3.2-5.2); ALKALINE PHOSPHATASE 137 U/L (35-104); ALT/SGPT 113 U/L (7.0-40); AST/SGOT 54 U/L (<34); BILIRUBIN,DIRECT 0.1 MG/DL (<0.4); BILIRUBIN,TOTAL 0.4 MG/DL (0.3-1.2); BLOOD UREA NITROGEN 17 MG/DL (9-23); CALCIUM LEVEL 9.1 MG/DL (8.5-10.1); CARBON DIOXIDE LEVEL 27 MMOL/L (20-31); CHLORIDE LEVEL 104 MMOL/L (98-107); CK-MB VALUE MASS 1.1 NG/ML (<3.6); CREATININE FOR GFR 0.54 MG/DL (0.55-1.30); GLOMERULAR FILTRATION RATE > 60.0 (>60); GLUCOSE, FASTING 210 MG/DL (60-100); POTASSIUM SERUM 4.3 MMOL/L (3.5-5.1); SODIUM LEVEL 134 MMOL/L (136-145)
[2024-08-29 02:55] LABS: FREE T4 1.09 NG/DL (0.89-1.76)
[2024-08-29 02:56] LABS: CPK CREATINE PHOSPHOKINASE 157 U/L (34-145); THYROID STIMULATING HORMONE 1.902 uIU/ML (0.55-4.78)
[2024-08-29 02:58] LABS: HCG, SERUM QUALITATIVE NEGATIVE (NEGATIVE)
[2024-08-29 03:57] LABS: MB/CK RELATIVE INDEX 0.69 (< OR =4)
[2024-08-29] MEDS: ACETAMINOPHEN 500 MG TAB PO ONE (07:32)
[2024-08-29] MEDS: ALBUTEROL SULFATE 2.5MG/0.5ML INH NEB SOLN NEB ONE (08:41)
[2024-08-29 09:00] VITALS: BP 151/71; O2SAT 94
[2024-08-29] MEDS ORDERED: CLIN-250 PO (09:04)
[2024-08-29 09:15] VITALS: TEMP 96.8
== END 2024-08-29 09:27 | disposition home or self-care (01) ==
LOC: M ED 01:46 → EDBD 01:46 → M ED 09:27
DX: R07.9 Chest pain, unspecified (principal); L03.313 Cellulitis of chest wall; B19.20 Unspecified viral hepatitis C without hepatic coma; I25.2 Old myocardial infarction; F17.210 Nicotine dependence, cigarettes, uncomplicated; Z88.0 Allergy status to penicillin; Z88.8 Allergy status to other drugs, medicaments and biological substances; Z79.1 Long term (current) use of non-steroidal anti-inflammatories (NSAID); Z79.84 Long term (current) use of oral hypoglycemic drugs

== ENCOUNTER → 2024-09-04 | Outpatient (REF) | payer OTHER ==
[~2024-09-04] MED LIST changes: +CLIN-250 PO
[2024-09-04 17:49] LABS: BASO # 0.1 10^3/uL (0.0-0.2); BASO % 1.2 % (0.0-1.0); EOS # 0.4 10^3/uL (0.0-0.5); EOS % 3.7 % (0.0-3.0); HEMATOCRIT 48.3 % (36.0-47.0); HEMOGLOBIN 16.4 g/dl (12.0-15.5); LYMPH # 1.6 10^3/uL (1.5-5.0); LYMPH % 16.2 % (24.0-44.0); MEAN CORPUSCULAR HEMOGLOBIN 30.9 pg (27.0-33.0); MEAN CORPUSCULAR VOLUME 91.1 fl (80.0-96.0); MONO # 0.6 10^3/uL (0.0-0.8); MONO % 6.1 % (2.0-8.0); NEUTROPHILS # 7.2 10^3/uL (1.5-8.5); PLATELET COUNT, AUTOMATED 296 10^3/uL (150-450)
[2024-09-04 17:50] LABS: ALBUMIN 3.6 G/DL (3.2-5.2); ALKALINE PHOSPHATASE 157 U/L (35-104); ALT/SGPT 122 U/L (7.0-40); AST/SGOT 63 U/L (<34); BILIRUBIN,TOTAL 0.6 MG/DL (0.3-1.2); BLOOD UREA NITROGEN 10 MG/DL (9-23); CALCIUM LEVEL 9.9 MG/DL (8.5-10.1); CARBON DIOXIDE LEVEL 27 MMOL/L (20-31); CHLORIDE LEVEL 101 MMOL/L (98-107); GLOMERULAR FILTRATION RATE > 60.0 (>60); GLUCOSE, FASTING 277 MG/DL (60-100); POTASSIUM SERUM 4.4 MMOL/L (3.5-5.1); SODIUM LEVEL 135 MMOL/L (136-145); TOTAL PROTEIN 7.9 G/DL (5.7-8.2)
[2024-09-04 18:01] LABS: INR 0.82; PROTHROMBIN TIME 11.6 SECONDS (12.5-14.5)
[2024-09-04 18:09] LABS: HEPATITIS B SURFACE ANTIGEN NEGATIVE (NEGATIVE)
[2024-09-04 18:22] LABS: HIV 1&2 SCREEN NEGATIVE (NEGATIVE)
[2024-09-04 18:38] LABS: HEPATITIS C VIRUS ABY INDEX > 11.00 INDEX (<0.8)
== END ==
LOC: M LAB REF 17:12
PROVIDERS: ATTEND Family Medicine Addiction Medicine
DX: B18.2 Chronic viral hepatitis C (principal)

== ENCOUNTER → 2024-11-20 | Outpatient (CLI) | payer OTHER ==
[2024-11-20 16:47] LABS: ALBUMIN 3.7 G/DL (3.2-5.2); BILIRUBIN,DIRECT 0.2 MG/DL (<0.4); BILIRUBIN,TOTAL 0.5 MG/DL (0.3-1.2); TOTAL PROTEIN 7.6 G/DL (5.7-8.2)
== END ==
LOC: M PLALAB 13:35
PROVIDERS: ATTEND Internal Medicine Infectious Disease
DX: B18.2 Chronic viral hepatitis C (principal)

== ENCOUNTER 2025-03-21 18:23 | Emergency (ER) | payer OTHER ==
[~2025-03-21] VITALS: Ht 162.6 cm; Wt 125.0 kg
[2025-03-21 20:09] VITALS: BP 117/59; TEMP 98.1; O2SAT 97
[2025-03-22] MEDS ORDERED: LIDO1ADH93 TOP (08:27)
== END 2025-03-21 20:54 | disposition left against medical advice (07) ==
LOC: M ED 18:23
DX: Z53.21 Procedure and treatment not carried out due to patient leaving prior to being seen by health care provider (principal)

== ENCOUNTER 2025-06-26 17:46 | Emergency (ER) | payer OTHER ==
[~2025-06-26] VITALS: Ht 162.6 cm; Wt 122.2 kg
[~2025-06-26 17:46] MED LIST changes: +ALCOPAD25 TOP; +ASPI81CH8 PO; +ATOR1TAB21 PO; +ATOR40TA75 PO; +BLOOKIT21 XX; +CYCL5TAB4 PO; +FARX1TAB3 PO; +GABA-1171 PO; +GLUC1TES2 XX; -IBUP-1022; -IBUP-1022 PO; -IBUP1TAB6 PO; +IBUP600T42; +IBUP600T42 PO; +JANU50TA8 PO; +LANC30MI XX; +LIDO1ADH93 TOP; +LIDO5TD TD; +METO1TAB32 PO; +OXYC1TAB23 PO; +SFHIBU600 PO
[2025-06-26] MEDS ORDERED: ISOVUE-370 76% 100 ML VIAL As Ordered ONE (18:00)
[2025-06-26 18:28] VITALS: BP 115/56; TEMP 101.2; O2SAT 93
[2025-06-26 18:40] LABS: BASO # 0.1 10^3/uL (0.0-0.2); BASO % 0.3 % (0.0-1.0); EOS # 0.1 10^3/uL (0.0-0.5); EOS % 0.3 % (0.0-3.0); LYMPH # 1.0 10^3/uL (1.5-5.0); LYMPH % 6.6 % (24.0-44.0); MONO # 0.9 10^3/uL (0.0-0.8); MONO % 5.8 % (2.0-8.0); NEUTROPHILS # 13.0 10^3/uL (1.5-8.5); NEUTROPHILS % 86.5 % (36.0-66.0); PLATELET COUNT, AUTOMATED 257 10^3/uL (150-450)
[2025-06-26] MEDS: ACETAMINOPHEN 325 MG TAB PO ONE (18:46)
[2025-06-26] MEDS: NS 500 ML IV ONE (18:46)
[2025-06-26 18:53] LABS: INR 1.06
[2025-06-26 18:56] LABS: ALT/SGPT 28 U/L (7.0-40); AST/SGOT 17 U/L (<34); CALCIUM LEVEL 8.8 MG/DL (8.5-10.1); CARBON DIOXIDE LEVEL 25 MMOL/L (20-31); CHLORIDE LEVEL 102 MMOL/L (98-107); CK-MB VALUE MASS < 1.0 NG/ML (<3.6); CREATININE FOR GFR 0.66 MG/DL (0.55-1.30); GLOMERULAR FILTRATION RATE > 90.0 (>60); POTASSIUM SERUM 4.1 MMOL/L (3.5-5.1); SODIUM LEVEL 137 MMOL/L (136-145)
[2025-06-26 18:58] LABS: FREE T4 1.04 NG/DL (0.89-1.76)
[2025-06-26 18:59] LABS: CPK CREATINE PHOSPHOKINASE 56 U/L (34-145)
[2025-06-27] MEDS ORDERED: METO1TAB32 PO (10:16)
[2025-06-27] MEDS ORDERED: ROSU20TA86 PO (10:16)
[2025-06-27] MEDS ORDERED: JANU50TA8 PO (10:16)
== END 2025-06-26 19:16 | disposition left against medical advice (07) ==
LOC: EDBD 17:46 → M ED 17:46
DX: R51.9 Headache, unspecified (principal); R00.0 Tachycardia, unspecified; E11.9 Type 2 diabetes mellitus without complications; I25.2 Old myocardial infarction; M54.50 Low back pain, unspecified; Z87.891 Personal history of nicotine dependence; Z88.0 Allergy status to penicillin; Z88.1 Allergy status to other antibiotic agents; Z88.5 Allergy status to narcotic agent; Z88.8 Allergy status to other drugs, medicaments and biological substances; Z79.82 Long term (current) use of aspirin; Z79.899 Other long term (current) drug therapy; Z53.9 Procedure and treatment not carried out, unspecified reason

== ENCOUNTER 2025-06-27 06:03 | Inpatient (IN) | payer OTHER ==
[~2025-06-27] VITALS: Ht 162.6 cm; Wt 121.7 kg
[2025-06-27 07:53] LABS: PLATELET COUNT, AUTOMATED 245 10^3/uL (150-450)
[2025-06-27] MEDS: KETOROLAC 30 MG/ML 1 ML VIAL IV ONE (08:01)
[2025-06-27 08:24] LABS: C REACTIVE PROTEIN QUANTITATIV 11.84 MG/DL (<1.0); CALCIUM LEVEL 9.3 MG/DL (8.5-10.1); CARBON DIOXIDE LEVEL 25 MMOL/L (20-31); CHLORIDE LEVEL 106 MMOL/L (98-107); CREATININE FOR GFR 0.68 MG/DL (0.55-1.30); GLOMERULAR FILTRATION RATE > 90.0 (>60); POTASSIUM SERUM 3.9 MMOL/L (3.5-5.1); SODIUM LEVEL 141 MMOL/L (136-145)
[2025-06-27] MEDS: NS (Normal Saline) 0.9% 1,000 ML IV ONE (08:43)
[2025-06-27] MEDS: TETANUS/DIPHTH/ACEL. PERTUSSIS 0.5 ML SYR IM.IMMUN ONE (08:45)
[2025-06-27] MEDS: metroNIDAZOLE 500 MG in IV 1 EA IV ONE (09:45)
[2025-06-27] MEDS: ACETAMINOPHEN 500 MG TAB PO ONE (09:50)
[2025-06-27] MEDS ORDERED: METO1TAB32 PO (10:16)
[2025-06-27] MEDS ORDERED: JANU50TA8 PO (10:16)
[2025-06-27] MEDS ORDERED: ROSU20TA86 PO (10:16)
[2025-06-27] MEDS ORDERED: HOME MED LIST COMPLETE! XX SCH (10:20)
[2025-06-27] MEDS: LevoFLOXacin IV 750 MG in IV 1 EA IV ONE (10:25)
[2025-06-27] MEDS: BACTRIM 160MG/800MG DS TAB PO SCH (12:20)
[2025-06-27] MEDS ORDERED: GLUCOSE 4 GM CHEW PO PRN (12:20)
[2025-06-27] MEDS ORDERED: GLUCAGON INJ 1 MG VIAL SC PRN (12:20)
[2025-06-27] MEDS ORDERED: DEXTROSE 50% 50 ML SYRINGE IV PRN (12:20)
[2025-06-27 13:45] VITALS: BP 114/64; TEMP 97.2; O2SAT 98
[2025-06-27] MEDS: PERCOCET 5MG/325MG TAB PO PRN (16:37)
[2025-06-27] MEDS: ENOXAPARIN 40 MG/0.4 ML SYRINGE (J1650 PER 10MG) SC SCH (16:37)
[2025-06-27] MEDS: INSULIN LISPRO (NovoLOG) PER UNIT SC SCH ×2 (16:42→21:00)
[2025-06-27 21:13] VITALS: BP 129/77; TEMP 97.9; O2SAT 95
[2025-06-27] MEDS: MORPHINE 2 MG/ML 1 ML VIAL IV PRN (21:23)
[2025-06-27] MEDS: ROSUVASTATIN 10 MG TAB PO SCH (21:25)
[2025-06-28 01:28] VITALS: BP 124/77; TEMP 97.9
[2025-06-28] MEDS ORDERED: MORPHINE 2 MG/ML 1 ML VIAL As Ordered ONE (02:37)
[2025-06-28 06:36] VITALS: BP 109/67; TEMP 98.1; O2SAT 97
[2025-06-28] MEDS: ONDANSETRON 4MG 2ML VIAL IV ONE (06:56)
[2025-06-28 07:53] LABS: PLATELET COUNT, AUTOMATED 208 10^3/uL (150-450)
[2025-06-28] MEDS: ASPIRIN 81 MG CHEWABLE TABLET PO SCH (08:26)
[2025-06-28] MEDS: KETOROLAC 30 MG/ML 1 ML VIAL IV ONE (08:27)
[2025-06-28 08:32] VITALS: BP 111/66
[2025-06-28] MEDS: METOPROLOL SUCC. 25 MG *XL* TAB PO SCH (08:32)
[2025-06-28] MEDS: FIORICET TAB PO PRN (08:43)
[2025-06-28 10:23] LABS: CALCIUM LEVEL 8.9 MG/DL (8.5-10.1); CARBON DIOXIDE LEVEL 24 MMOL/L (20-31); CHLORIDE LEVEL 106 MMOL/L (98-107); CREATININE FOR GFR 0.75 MG/DL (0.55-1.30); GLOMERULAR FILTRATION RATE > 90.0 (>60); POTASSIUM SERUM 3.9 MMOL/L (3.5-5.1); SODIUM LEVEL 141 MMOL/L (136-145)
[2025-06-28 10:25] LABS: C REACTIVE PROTEIN QUANTITATIV 16.95 MG/DL (<1.0)
[2025-06-28 12:15] VITALS: BP 114/76; TEMP 98; O2SAT 98
[2025-06-28] MEDS: VANCOMYCIN HCL 1,000 MG, VIAL MATE ADAPTER 1 EACH in NS 250 ML IV ONE (12:51)
[2025-06-28] MEDS: AZITHROMYCIN 250 MG TABLET PO ONE (12:51)
[2025-06-28 14:47] VITALS: BP 109/60; TEMP 97.3; O2SAT 97
[2025-06-28] MEDS: VANCOMYCIN HCL 1,000 MG, VIAL MATE ADAPTER 1 EACH in NS 250 ML IV SCH (16:01)
[2025-06-28 20:41] VITALS: BP 113/62; TEMP 97.9; O2SAT 97
[2025-06-28] MEDS ORDERED: PROHANCE 279.3MG/ML 5ML VIAL As Ordered ONE (21:33)
[2025-06-28] MEDS ORDERED: PROHANCE 279.3MG/ML 15ML VIAL As Ordered ONE (21:33)
[2025-06-29] VITALS (7 sets, daily range): BP systolic 101–145; BP diastolic 60–88; TEMP 97–98.1; O2SAT 93–97
[2025-06-29 07:53] LABS: BASO # 0.1 10^3/uL (0.0-0.2); BASO % 0.5 % (0.0-1.0); EOS # 0.1 10^3/uL (0.0-0.5); EOS % 1.1 % (0.0-3.0); LYMPH # 1.8 10^3/uL (1.5-5.0); LYMPH % 16.9 % (24.0-44.0); MONO # 0.9 10^3/uL (0.0-0.8); MONO % 8.3 % (2.0-8.0); NEUTROPHILS # 7.7 10^3/uL (1.5-8.5); NEUTROPHILS % 72.8 % (36.0-66.0); PLATELET COUNT, AUTOMATED 233 10^3/uL (150-450)
[2025-06-29 08:24] LABS: VANCOMYCIN LEVEL TROUGH 6.0 UG/ML (10.0-20.0)
[2025-06-29 08:26] LABS: C REACTIVE PROTEIN QUANTITATIV 9.94 MG/DL (<1.0); CALCIUM LEVEL 8.6 MG/DL (8.5-10.1); CARBON DIOXIDE LEVEL 20 MMOL/L (20-31); CHLORIDE LEVEL 109 MMOL/L (98-107); CREATININE FOR GFR 0.61 MG/DL (0.55-1.30); GLOMERULAR FILTRATION RATE > 90.0 (>60); POTASSIUM SERUM 4.8 MMOL/L (3.5-5.1); SODIUM LEVEL 140 MMOL/L (136-145)
[2025-06-29] MEDS: NS (Normal Saline) 0.9% 1,000 ML IV SCH (10:54)
[2025-06-29] MEDS: VANCOMYCIN HCL 1,250 MG, VIAL MATE ADAPTER 1 EACH in NS 250 ML IV SCH (12:57)
[2025-06-29] MEDS: AZITHROMYCIN 250 MG TABLET PO SCH (12:57)
[2025-06-29 14:21] LABS: HCG, SERUM QUANTITATIVE < 2.6 MIU/ML (<4.2)
[2025-06-29] MEDS ORDERED: ONDANSETRON 4MG 2ML VIAL As Ordered ONE (15:50)
[2025-06-29] MEDS ORDERED: dexmedeTOMIDine (4 MCG/ML) 200 MCG/50 ML BTL As Ordered ONE (15:50)
[2025-06-29] MEDS ORDERED: dexAMETHasone 4 MG/ML 1 ML VIAL As Ordered ONE (15:50)
[2025-06-29] MEDS ORDERED: LIDOCAINE 2% 100 MG/5 ML SDV (FOR ANES.) As Ordered ONE (15:50)
[2025-06-29] MEDS ORDERED: MIDAZOLAM INJ 2 MG/2 ML VIAL As Ordered ONE (15:51)
[2025-06-29] MEDS ORDERED: KETOROLAC 30 MG/ML 1 ML VIAL As Ordered ONE (16:39)
[2025-06-29] MEDS ORDERED: MORPHINE 2 MG/ML 1 ML VIAL IV PRN (17:05)
[2025-06-29] MEDS: HYDROMORPHONE HCL 0.5 MG/0.5 ML SYRINGE IV PRN (17:29)
[2025-06-30 00:06] VITALS: BP 132/79; TEMP 96.8; O2SAT 95
[2025-06-30 05:45] VITALS: BP 112/63; TEMP 96.8; O2SAT 94
[2025-06-30 09:13] LABS: BASO # 0.0 10^3/uL (0.0-0.2); BASO % 0.3 % (0.0-1.0); EOS # 0.0 10^3/uL (0.0-0.5); EOS % 0.3 % (0.0-3.0); LYMPH # 1.6 10^3/uL (1.5-5.0); LYMPH % 13.6 % (24.0-44.0); MONO # 0.7 10^3/uL (0.0-0.8); MONO % 5.4 % (2.0-8.0); NEUTROPHILS # 9.6 10^3/uL (1.5-8.5); NEUTROPHILS % 80.0 % (36.0-66.0); PLATELET COUNT, AUTOMATED 239 10^3/uL (150-450)
[2025-06-30 09:56] LABS: VANCOMYCIN LEVEL TROUGH 14.4 UG/ML (10.0-20.0)
[2025-06-30 09:57] LABS: C REACTIVE PROTEIN QUANTITATIV 5.63 MG/DL (<1.0); CALCIUM LEVEL 8.9 MG/DL (8.5-10.1); CARBON DIOXIDE LEVEL 21 MMOL/L (20-31); CHLORIDE LEVEL 109 MMOL/L (98-107); CREATININE FOR GFR 0.58 MG/DL (0.55-1.30); GLOMERULAR FILTRATION RATE > 90.0 (>60); POTASSIUM SERUM 4.9 MMOL/L (3.5-5.1); SODIUM LEVEL 139 MMOL/L (136-145)
[2025-06-30 10:00] VITALS: BP 133/76; TEMP 97.2; O2SAT 95
[2025-06-30] MEDS: VANCOMYCIN HCL 1,250 MG, VIAL MATE ADAPTER 1 EACH in NS 250 ML IV SCH (11:58)
[2025-06-30 14:40] VITALS: BP 111/62; TEMP 97.5; O2SAT 98
[2025-06-30 19:30] VITALS: BP 107/72; TEMP 97.3; O2SAT 97
[2025-06-30] MEDS: ACETAMINOPHEN 325 MG TAB PO PRN (21:54)
[2025-06-30 23:37] LABS: B HENSELAE DNA PCR QL NOT DETECTED (NOT DETECT); B QUINTANA DNA PCR QL NOT DETECTED (NOT DETECT)
[2025-07-01 06:00] VITALS: BP 108/76; TEMP 97; O2SAT 97
[2025-07-01] MEDS: BACTRIM 160MG/800MG DS TAB PO SCH (08:11)
[2025-07-01 09:52] LABS: BASO # 0.1 10^3/uL (0.0-0.2); BASO % 0.9 % (0.0-1.0); EOS # 0.2 10^3/uL (0.0-0.5); EOS % 2.0 % (0.0-3.0); LYMPH # 2.6 10^3/uL (1.5-5.0); LYMPH % 29.2 % (24.0-44.0); MONO # 0.6 10^3/uL (0.0-0.8); MONO % 6.4 % (2.0-8.0); NEUTROPHILS # 5.3 10^3/uL (1.5-8.5); NEUTROPHILS % 59.9 % (36.0-66.0); PLATELET COUNT, AUTOMATED 271 10^3/uL (150-450)
[2025-07-01] MEDS: FLUCONAZOLE 50 MG TABLET PO ONE (10:13)
[2025-07-01 10:20] LABS: C REACTIVE PROTEIN QUANTITATIV 2.38 MG/DL (<1.0); CALCIUM LEVEL 9.0 MG/DL (8.5-10.1); CARBON DIOXIDE LEVEL 22 MMOL/L (20-31); CHLORIDE LEVEL 112 MMOL/L (98-107); CREATININE FOR GFR 0.58 MG/DL (0.55-1.30); GLOMERULAR FILTRATION RATE > 90.0 (>60); POTASSIUM SERUM 4.6 MMOL/L (3.5-5.1); SODIUM LEVEL 143 MMOL/L (136-145)
[2025-07-01] MEDS ORDERED: OXYC1TAB23 PO (11:21)
[2025-07-01] MEDS ORDERED: BACT800T5 PO (11:21)
== END 2025-07-01 14:00 | disposition home or self-care (01) | DRG 383 ==
LOC: M ED 06:03 → EEVIPCON 12:16 → M ED INP 12:16 → M MS5PR 13:40
PROVIDERS: ADMIT Internal Medicine; ATTEND Internal Medicine
PROC: 0X9J0ZZ Drainage of Right Hand, Open Approach (ICD-10-PCS; principal; 2025-06-29 16:30)
DX: L02.511 Cutaneous abscess of right hand (principal); L03.113 Cellulitis of right upper limb; E11.9 Type 2 diabetes mellitus without complications; G43.909 Migraine, unspecified, not intractable, without status migrainosus; I25.2 Old myocardial infarction; I25.10 Atherosclerotic heart disease of native coronary artery without angina pectoris; M51.26 Other intervertebral disc displacement, lumbar region; L04.2 Acute lymphadenitis of upper limb; M48.07 Spinal stenosis, lumbosacral region; M65.941 Unspecified synovitis and tenosynovitis, right hand; Z90.49 Acquired absence of other specified parts of digestive tract; Z79.82 Long term (current) use of aspirin; Z79.899 Other long term (current) drug therapy; Z88.0 Allergy status to penicillin; Z88.1 Allergy status to other antibiotic agents; Z88.5 Allergy status to narcotic agent; Z88.8 Allergy status to other drugs, medicaments and biological substances; Z91.02 Food additives allergy status; Z87.891 Personal history of nicotine dependence; Z86.14 Personal history of Methicillin resistant Staphylococcus aureus infection; Z95.5 Presence of coronary angioplasty implant and graft

== ENCOUNTER → 2025-07-13 | Outpatient (CLI) | payer MEDICAID, OTHER ==
[~2025-07-13] MED LIST changes: +ROSU20TA86 PO
[2025-07-13 15:39] LABS: APPEARANCE, URINE HAZY (CLEAR); BACTERIA, URINE AUTO NEGATIVE (NEGATIVE); BILIRUBIN, URINE AUTO NEGATIVE (NEGATIVE); BLOOD, URINE BLOOD NEGATIVE (NEGATIVE); GLUCOSE, URINE (UA) AUTO NEGATIVE (NEGATIVE); KETONE, URINE AUTO NEGATIVE (NEGATIVE); LEUKOCYTE ESTERASE, URINE AUTO NEGATIVE (NEGATIVE); MUCUS, URINE SMALL (NEGATIVE); NITRITE, URINE AUTO NEGATIVE (NEGATIVE); PROTEIN, URINE AUTO NEGATIVE (NEGATIVE); RBC, URINE AUTO 0 /HPF (0-3); SPECIFIC GRAVITY URINE AUTO 1.024 (1.002-1.035); SQUAMOUS EPITHELIAL CELL UR AU 3 /HPF (0-6); UROBILINOGEN, URINE AUTO 0.2 mg/dL (0.0-2.0); WBC, URINE AUTO 4 /HPF (0-3)
[2025-07-13 15:41] LABS: BASO # 0.1 10^3/uL (0.0-0.2); BASO % 0.8 % (0.0-1.0); EOS # 0.2 10^3/uL (0.0-0.5); EOS % 2.0 % (0.0-3.0); LYMPH # 2.2 10^3/uL (1.5-5.0); LYMPH % 22.9 % (24.0-44.0); MONO # 0.5 10^3/uL (0.0-0.8); MONO % 5.0 % (2.0-8.0); NEUTROPHILS # 6.6 10^3/uL (1.5-8.5); NEUTROPHILS % 69.0 % (36.0-66.0); PLATELET COUNT, AUTOMATED 323 10^3/uL (150-450)
[2025-07-13 15:48] LABS: ERYTHROCYTE SEDIMENTATION RATE 23 mm/hr (0-20)
== END ==
LOC: M LAB 14:50
PROVIDERS: ATTEND Physician Assistant
DX: L02.511 Cutaneous abscess of right hand (principal)

== ENCOUNTER → 2025-07-30 | Outpatient (CLI) | payer OTHER ==
[2025-07-30 12:10] LABS: PLATELET COUNT, AUTOMATED 288 10^3/uL (150-450)
[2025-07-30 12:40] LABS: ALT/SGPT 25 U/L (7.0-40); AST/SGOT 17 U/L (<34); CALCIUM LEVEL 9.1 MG/DL (8.5-10.1); CARBON DIOXIDE LEVEL 26 MMOL/L (20-31); CHLORIDE LEVEL 103 MMOL/L (98-107); CREATININE FOR GFR 0.61 MG/DL (0.55-1.30); GLOMERULAR FILTRATION RATE > 90.0 (>60); POTASSIUM SERUM 4.5 MMOL/L (3.5-5.1); SODIUM LEVEL 139 MMOL/L (136-145)
[2025-07-30 13:04] LABS: HEPATITIS B SURFACE ANTIBODY NEGATIVE (POSITIVE)
[2025-07-30 13:12] LABS: HIV 1&2 SCREEN NEGATIVE (NEGATIVE)
[2025-07-30 13:32] LABS: HEPATITIS C VIRUS ABY INDEX > 11.00 INDEX (<0.8)
[2025-07-31 13:23] LABS: HEPATITIS B CORE ANTIBODY IGG NON-REACTIVE (NON-REACTIVE)
[2025-08-01 10:46] LABS: HCV RNA QUANTITATION <15 NOT DETECTED IU/mL (NOT DETECTED); HCV RNA log10 <1.18 NOT DETECTED Log IU/mL (NOT DETECTED)
== END ==
LOC: M LAB 09:52
PROVIDERS: ATTEND Physician Assistant
DX: L73.2 Hidradenitis suppurativa (principal)